=== PATIENT | male | born 1945 | race Caucasian/White ===

== ENCOUNTER → 2017-02-22 | Outpatient (CLI) | payer OTHER ==
[~2017-02-22] MED LIST: ATEN50TA PO; BISA-34 PO; GLUCTAB7 PO; LEVO200T PO; MRLP17 PO; MULT-506 PO; PRCSR30 PO; RXC5 PO; SENN-65 PO; TAMS0.4C38 PO
--- NOTE | 2017-02-26 08:46 | DIAGNOSTIC IMAGING REPORT ---
CT OF THE CHEST WITHOUT IV CONTRAST CLINICAL HISTORY: Pulmonary nodule COMPARISON STUDY: PET/CT scan dated 08/21/2016 CT DOSE: 541.64 mGycm TECHNIQUE: CT of the thorax was performed from the thoracic inlet to the lung bases. Images are reviewed in the axial, sagittal, and coronal planes. IV contrast was not administered for this examination. FINDINGS: Thyroid: Postsurgical changes involve the thyroid. Thoracic aorta: The thoracic aorta is normal in course and caliber, noting standard 3 vessel arch anatomy. Heart: There are coronary artery calcifications present. Lungs and pleural spaces: No pleural effusions are visualized. There is no focal pulmonary consolidation. There is a 12 mm solid left lower lobe pulmonary nodule. This nodule demonstrates no greater than 1 mm interval growth when compared to the abdominal pelvic CT scan performed in June 2016. There is a 4 mm groundglass right lower lobe pulmonary nodule similar in appearance to the prior PET/CT. Mediastinum: There is increasing mediastinal lymphadenopathy. Loretta: Mild hilar adenopathy is suspected but evaluation is limited due to the noncontrast nature the study Axilla: There is increasing bilateral axillary lymphadenopathy Upper abdomen: There is increasing upper abdominal lymphadenopathy Skeletal structures: There are no lytic or blastic osseous lesions. IMPRESSION: 1. Increasing mediastinal, axillary, supraclavicular, and upper abdominal lymphadenopathy. The findings are highly suspicious for lymphoma 2. 12 mm solid left lower lobe pulmonary nodule. This demonstrates no greater than 1 mm interval growth when compared with a prior June 2016 study Electronically signed by: Daniel Pineda M.D. 02/22/2017 11:24 AM Dictated Date/Time: 02/22/2017 11:15 AM
== END | disposition home or self-care (01) ==
LOC: C.CTS 10:26
PROVIDERS: ATTEND Internal Medicine Hematology & Oncology
DX: R91.1 Solitary pulmonary nodule (principal); R59.1 Generalized enlarged lymph nodes

== ENCOUNTER → 2017-09-10 | Outpatient (CLI) | payer OTHER ==
[~2017-09-10] MED LIST changes: +OPTIRAY 320 IV PRN
--- NOTE | 2017-09-10 14:34 | DIAGNOSTIC IMAGING REPORT ---
CT ABD/PELVIS IV AND ORAL CONT CLINICAL HISTORY: LEUKEMIA COMPARISON STUDY: 08/02/2016, chest CT scan dated 08/23/2017 TECHNIQUE: Following the IV administration of 93 mL of Optiray-320, CT scan of the abdomen and pelvis was performed from the lung bases to the proximal femurs. Images are reviewed in the axial, sagittal, and coronal planes. IV contrast was administered without complication. A dose lowering technique was utilized adhering to the principles of ALARA. CT DOSE: FINDINGS: Lower chest: There has been interval resolution of the presented identified bilateral pleural effusions. There is a 12 mm left lower lobe pulmonary nodule. This remains unchanged from the chest CT scan performed 08/23/2017 Liver: The contrast-enhanced liver is normal in size, contour, and attenuation. There is no intrahepatic biliary ductal dilatation. The hepatic veins and portal veins are patent. Gallbladder: Surgically absent Spleen: The spleen is enlarged measuring 13.8 cm. There are multiple splenic masses, the largest of which measures 4.9 cm. Neoplastic involvement is suspected. Pancreas: Soft tissue nodules at the level the pancreatic tail, likely represent extrinsic adenopathy. Adrenal glands: Unremarkable. Kidneys: There is been marked interval improvement in the previously identified bilateral hydronephrosis. There is slight stranding in the region the left renal pelvis Bowel: There are no transition zone to indicate bowel obstruction. There is no acute diverticulitis. There is no evidence of acute appendicitis. Peritoneum: There is no intraperitoneal free air or abdominal ascites. Vasculature: The abdominal aorta is normal in course and caliber. Adenopathy: There is extensive progressive abdominal and pelvic lymphadenopathy. Dot hepatis adenopathy measures 9.7 cm. Adenopathy at the level the right renal artery and right renal vein measures 12.9 cm in AP diameter and 11.5 cm transversely. There are multiple enlarged mesenteric lymph nodes. There is bilateral iliac chain lymphadenopathy. There is mild bilateral inguinal lymphadenopathy. Pelvic viscera: The bladder, and pelvic viscera are unremarkable. Skeletal structures: Postsurgical changes are present within the lumbar spine. IMPRESSION: 1. Stable 12 mm left lower lobe pulmonary nodule 2. Markedly progressive extensive abdominal and pelvic lymphadenopathy. 3. Splenomegaly and multiple splenic masses Electronically signed by: Daniel Pineda M.D. 09/10/2017 2:33 PM Dictated Date/Time: 09/10/2017 2:24 PM
--- NOTE | 2017-09-10 15:05 | DIAGNOSTIC IMAGING REPORT ---
(CHEST) THORAX WITH CLINICAL HISTORY: 71 years-old Male presenting with LEUKEMIA. TECHNIQUE: Multidetector CT imaging of the chest was performed after the administration of intravenous contrast. IV contrast: 93 mL of Optiray 320. A dose lowering technique was used consistent with the principles of ALARA (as low as reasonably achievable). COMPARISON: 08/23/2017. CT DOSE (mGy.cm): The estimated cumulative dose is 1295.17 mGycm. 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 Radiodensity projects over the right midlung. On soft tissue windows, postsurgical change of the thyroidectomy bed. Previously noted diffuse lymphadenopathy is again apparent involving the bilateral axillae, supraclavicular fossae, mediastinum, ester, right greater than left. Upper abdominal lymphadenopathy also noted. Few index nodes are measured for comparison. Left axillary lymph node measures 1.7 cm and the short axis (see series 4 image 92), previously 1.6 cm. Right retropectoral lymph node measures 1.7 cm in the short axis (series 4 image 62), previously 2.0 cm. Precarinal lymph node measures 1.3 cm in the short axis (series 4 image 96), previously 1.4 cm. Atherosclerosis of the aorta. Postsurgical changes of coronary artery bypass. Normal heart size. Coronary artery calcification. No pericardial or pleural effusion. Please see separately dictated CT of the abdomen and pelvis for intra-abdominal findings. On lung windows, left lower lobe solid pulmonary nodule measures 11 mm (series 4 image 206), previously 11 mm. Dependent changes likely atelectasis. Minimal groundglass opacity in the subpleural right lower lobe (series 4 image 160), unchanged from prior exam. On bone windows, degenerative changes of the spine. IMPRESSION: 1. 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 Overall no convincing evidence of progression of disease in the thorax. 2. Post surgical changes of CABG. 3. Solid 11 mm left lower lobe pulmonary nodule. This is unchanged since 02/22/2017. 4. Electronically signed by: Calderon Christianson M.D. 09/10/2017 3:04 PM Dictated Date/Time: 09/10/2017 2:53 PM
== END | disposition home or self-care (01) ==
LOC: C.CTS 13:22
PROVIDERS: ATTEND Internal Medicine Hematology & Oncology
DX: C91.10 Chronic lymphocytic leukemia of B-cell type not having achieved remission (principal); R91.1 Solitary pulmonary nodule; R59.0 Localized enlarged lymph nodes; R16.1 Splenomegaly, not elsewhere classified; D73.9 Disease of spleen, unspecified

== ENCOUNTER 2021-11-29 16:42 | Observation (INO) ==
[2021-11-29] MEDS ORDERED: NITROGLYCERIN 2% OINTMENT 30GM TUBE EXT STA (17:16)
--- NOTE | 2021-11-29 17:18 | Emergency Department Note ---
History of Present Illness General Chief complaint: Chest Pain Time Seen by Provider: 11/29/21 17:03 Source: patient Mode of arrival: EMS History of Present Illness Provider complaint: Chest pain Onset (ago): hour(s) Location: chest Radiation: non-radiation Pain Consistency: + constant Maximum Pain Intensity: 1 Quality: + other (Squeezing) Relieved By: + none Exacerbated By: + none Associated symptoms: + chest pain; no cough, no diaphoresis, no fever/chills, no nausea/vomiting or no shortness of breath This is a 76-year-old male with a history of quadruple bypass presenting with chest pain starting approximately 3:00 today. The patient states that it felt like a squeezing sensation in the lower chest. He rated it a 10 out of 10 in severity. He called 911 and took an antacid. He states years ago he had the same symptoms and saw his neighbor who is a doctor. The antacid worked for him years ago but today it did not seem to help. The ambulance did arrive. He did receive nitroglycerin as well as aspirin. He states the pain seemed to get better before he was given a nitro. He had no associated shortness of breath or diaphoresis. He denies any abdominal pain. He has had no fever, cough or cold symptoms, vomiting, diarrhea, black or bloody stools, urinary symptoms or leg swelling or pain. He does state that his right leg is naturally asymmetrically bigger than the left due to venous graft harvesting for his bypass surgery. He states he never had a heart attack. He had the bypass before he developed 1. He does state that he drove to and back from [place] about 2 weeks ago. He also drove his son to [place] and back today. He denies any history of PE or DVT. Home Medications Medication Instructions Recorded Confirmed Type levothyroxine 200 mcg tablet 200 mcg PO DAILYBB 07/30/18 05/28/21 History (Synthroid) metformin 850 mg tablet 850 mg PO BID 07/30/18 05/28/21 History hyuscwxtvmba-oekuaqsr-muypyg 1 tab PO QAM 07/30/18 05/28/21 History tablet (Multivitamin 50 Plus) simvastatin 40 mg tablet (Zocor) 40 mg PO HS 07/30/18 05/28/21 History tamsulosin 0.4 mg capsule (Flomax) 0.4 mg PO QAM 07/30/18 05/28/21 History ibrutinib 420 mg tablet (Imbruvica) 420 mg PO DAILY@1600 05/03/19 05/28/21 History insulin glargine 100 unit/mL (3 14 unit SUBCUT HS 05/03/19 05/28/21 History mL) subcutaneous pen (Basaglar KwikPen U-100 Insulin) insulin aspart U-100 100 unit/mL 0 unit SUBCUT USEASDIRECTD PRN 07/23/19 05/28/21 History subcutaneous solution (Novolog U-100 Insulin aspart) lisinopril 20 mg tablet (Prinivil) 40 mg PO BID 07/23/19 05/28/21 History atenolol 50 mg tablet (Tenormin) 50 mg PO QAM tab 07/31/19 05/28/21 History prazosin 2 mg capsule (Minipress) 4 mg PO BID 01/02/21 05/28/21 History cephalexin 250 mg capsule 250 mg PO UD 05/28/21 05/28/21 History Allergies Allergy/AdvReac Type Severity Reaction Status Date / Time clopidogrel AdvReac Severe SEVERE Verified 11/29/21 19:11 SUBCUTANEOUS BLEEDING BOTH ARMS glimepiride [From Amaryl] AdvReac Severe Increased Verified 11/29/21 19:11 liver enzymes Sulfa (Sulfonamide AdvReac Severe Increased Verified 11/29/21 19:11 Antibiotics) liver enzymes sulfamethoxazole AdvReac Severe INCREASED Verified 11/29/21 19:11 [From Bactrim] LIVER ENZYMES trimethoprim [From Bactrim] AdvReac Severe INCREASED Verified 11/29/21 19:11 LIVER ENZYMES Opioids - Morphine Analogues AdvReac Intermediate severe Verified 11/29/21 19:11 constipation Past Med/Surg History Medical History BPH (benign prostatic hyperplasia) Callus Cancer SKIN CANCER REMOVAL Diabetes mellitus, type 2 Hearing deficit Hyperlipidemia Hypertension Hypothyroidism Kidney stones Leukemia CLL (CHEMO) Osteoarthritis Pulmonary nodule BEING MONITORED Type 2 diabetes mellitus with diabetic neuropathy Ulcer of right heel and midfoot Surgical History Fusion of spine LUMBAR H/O four vessel coronary artery bypass graft History of cardiac cath CHEST PAIN>13 YEARS AGO History of cholecystectomy History of cholecystectomy History of colonoscopy History of coronary artery bypass graft 4 VESSELS (13 YEARS AGO) History of cystoscopy KIDNEY STONE REMOVAL History of thyroidectomy, total BENIGN (MULTIPLE RADIATION TREATMENT FOR ACNE AT AGE 14) History of tonsillectomy History of tooth extraction Previous back surgery Family History Grandfather Family history of diabetes mellitus Social History Smoking Status: Former smoker Tobacco Type: Cigarettes Cigarettes Per Day: QUIT 1984; Second Hand Exposure: No; Hx Alcohol Use: Yes Alcohol type: beer and hard liquor Hx Substance Use: No Preferred Language: Gambian Communication Ability: Effective Visual Impairment: Limited Hearing Ability: Normal Haircutter Required: No Beliefs That Will Affect Care: None marital status: Current Living Situation: Spouse current occupational status: retired Feels Safe at Home: Yes Assistive Devices: Glasses Review of Systems See HPI for pertinent positives & negatives. and A total of 10 systems reviewed and were otherwise negative Physical Exam Vital Signs Vital Signs - 24 hr 11/29/21 16:33 11/29/21 17:01 Temperature 36.5 C Temperature Source Oral Pulse Rate 82 82 Pulse Rhythm Regular Regular Pulse Strength Normal Respiratory Rate 22 22 Respiratory Effort / Characteristics Non-Labored Spontaneous Respiratory Depth Normal Respiratory Pattern Regular Blood Pressure 123/65 Blood Pressure Mean 84 Blood Pressure Position Sitting Pulse Oximetry 93 93 Oxygen Delivery Method Room Air Room Air Sepsis Recent Fever Within 48 Hours No Sepsis New/Unexplained Change in Mental Status No Sepsis Action Taken by Nursing No Action Required Constitutional: Vital signs reviewed. Eyes: Pupils are equal round reactive to light. Conjunctiva are noninjected. ENT: Pharynx is clear without erythema or exudate. Mucous membranes are moist. Neck supple without meningeal signs. Respiratory: Clear to auscultation bilaterally. Breath sounds are equal bilaterally. Cardiovascular: Regular rate and rhythm. No rubs or gallops. GI: Soft, nondistended and nontender. Bowel sounds are present. Musculoskeletal: No peripheral edema. No lower extremity tenderness. Integumentary: No cyanosis. or jaundice. Neurological: The patient is awake and alert. No focal deficits. Psychiatric: Normal affect. Not anxious appearing. Course Administered Medications Discontinued Medications Nitroglycerin (Nitroglycerin 2% Ointment 30gm Tube) 0.5 inch EXT NOW STA Stop: 11/29/21 17:17 Last Admin: 11/29/21 17:46 Dose: 0.5 inch Documented by: [id number] Medical Decision Making Differential Diagnosis Unstable angina, [place], esophagitis, GERD, anxiety, PE Medical Records Attestation: I reviewed the patient's medical records. I did perform a limited focused review of portions of the patient's old chart on the electronic medical record. The patient has had no recent pertinent visits to this hospital. Home Medications Current Medication List: was personally reviewed by me Laboratory Data Attestation: I reviewed the patient's lab results. Result diagrams: 11/29/21 16:53 11/29/21 16:53 Lab Results 11/29/21 11/29/21 Range/Units 16:53 16:53 WBC 11.00 H (4.8-10.8) K/uL RBC 4.30 L (4.7-6.1) M/uL Hgb 14.8 (14.0-18.0) g/dL Hct 41.9 L (42-52) % MCV 97.4 (80-100) fL MCH 34.4 H (25-34) pg MCHC 35.3 (32-36) g/dL RDW Std Deviation 48.4 H (36.4-46.3) fL RDW Coeff of Irina 13.7 (11.5-14.5) % Plt Count 85 L (130-400) K/uL MPV 12.2 H (7.4-10.4) fL Immature Gran % (Auto) 0.1 % Neut % (Auto) 85.4 % Lymph % (Auto) 11.3 % Wilkes % (Auto) 2.2 % Eos % (Auto) 0.7 % Baso % (Auto) 0.3 % Neut # (Auto) 9.40 H (1.4-6.5) K/uL Lymph # (Auto) 1.24 (1.2-3.4) K/uL Wilkes # (Auto) 0.24 (0.11-0.59) K/uL Eos # (Auto) 0.08 (0-0.5) K/uL Baso # (Auto) 0.03 (0-0.2) K/uL Immature Gran # (Auto) 0.01 (0.00-0.02) K/uL Platelet Estimate Decreased L (Normal) Sodium 140 (136-145) mmol/L Potassium 4.5 (3.5-5.1) mmol/L Chloride 108 H (98-107) mmol/L Carbon Dioxide 23 (21-32) mmol/L Anion Gap 9 (3-11) BUN 28 H (6-23) mg/dl Creatinine 1.21 (0.6-1.4) mg/dl Est Cr Clr Drug Dosing 57.0 ml/min Est GFR ( Amer) 67.9 ml/min Est GFR (Non-Af Amer) 58.6 ml/min BUN/Creatinine Ratio 23.1 H (10-20) Glucose 161 H (70-99(Fasting)) mg/dl Calcium 8.2 L (8.5-10.1) mg/dl Total Bilirubin 2.2 H (0.2-1.0) mg/dl AST 110 H (13-39) U/L ALT 48 (7-52) U/L Alkaline Phosphatase 67 (34-104) U/L Troponin I < 0.03 (0-0.04) ng/ml Total Protein 6.4 (6.0-8.3) gm/dl Albumin 4.1 (3.4-5.0) gm/dl Globulin 2.3 L (2.5-4.0) gm/dl Albumin/Globulin Ratio 1.8 (0.9-2) Lipase 53 (11-82) U/L Imaging Data Radiologist's Impression: Chest X-Ray 11/29/21 17:01 XR chest 1V portable CLINICAL HISTORY: Chest Pain. COMPARISON STUDY: 09/26/2018 TECHNIQUE: 1 view of the chest FINDINGS: Single frontal view of the chest demonstrates the cardiomediastinal silhouette to be within normal limits. The patient is status post previous cardiothoracic surgery. The lungs are clear of alveolar opacities. There is no evidence for pleural effusion. There is no evidence for vascular congestion. There is no acute osseous pathology. IMPRESSION: 1. No acute cardiopulmonary disease. ACT 112: Negative or not required by law. Electronically signed by: Blaine Magaña M.D. 11/29/2021 5:20 PM Liver Ultrasound 11/29/21 17:43 US liver LIMITED ABDOMEN CLINICAL HISTORY: elevated bili eval for biliary obstruction. COMPARISON: Old CT of the abdomen and pelvis from 04/09/2020 TECHNIQUE: Multiple grayscale and color images of the right upper quadrant of the abdomen. FINDINGS: Pancreas: The pancreas is within normal limits with no focal mass or peripancreatic fluid collection identified. Liver: The liver is homogeneous in echogenicity There is no evidence for a focal mass. There is no intrahepatic biliary duct dilatation. Gallbladder: The patient is status post previous cholecystectomy. Common Bile Duct: (CBD): It is normal in size measuring 6 mm. Inferior Vena Cava (IVC): The imaged IVC is patent. Right kidney: There is no evidence for hydronephrosis, calculus or gross renal mass. The kidney is normal in size. It measures 12.8 cm in greatest length. IMPRESSION: 1. Status post cholecystectomy with normal common bile duct. No intrahepatic b iliary duct dilatation. ACT 112: Negative or not required by law. Electronically signed by: Blaine Magaña M.D. 11/29/2021 6:54 PM ECG Data Attestation: I personally reviewed and interpreted this ECG as follows: Indication: + chest pain Rate (beats per minute): 82 Rhythm: + normal sinus ECG Warren: + Normal ECG ST segments: + Nonspecific ST abnormalities ECG Findings: no PVCs Comparison ECG Date: from (December 27, 2017) Change: no significant change (Difficult to assess is a copy on the electronic record is very poor) MDM Narrative I did evaluate the patient as noted above. He has a history of quadruple bypass and is presenting with chest pain which she describes as a squeezing and pressure in the middle of his chest. It is now resolved. He did receive nitroglycerin and aspirin prior to arrival. I did place an order for continuous cardiac monitoring. The monitor showed normal sinus rhythm at a rate of 80 bpm. I did order and personally review the patient's 12-lead EKG as described above. He has no acute ischemic changes. I did order and personally reviewed the images of the patient's chest x-ray as described above. Chest x-ray is unremarkable without signs of pneumonia. I did order and review the patient's blood work as noted in the electronic medical record. CBC demonstrates a white count of 11. Hemoglobin is 14.8 and platelet count is 85. He does have a history of chronic thrombocytopenia. Electrolytes are unremarkable other than a chloride of 108 and calcium of 8.2 LFTs show a bilirubin of 2.2 and an AST of 110. Prior bilirubins have been elevated up to 1.4 but never as high as 2.2. He has no abdominal tenderness but given the elevated bilirubin I did order an ultrasound of the right upper quadrant. I did review the images myself as well as the radiology report as described above. There is no evidence of biliary obstruction. Common bile duct is normal caliber and there is no evidence of intrahepatic biliary ductal dilatation. I did reassess the patient. He states his chest pain is now completely resolved. I did discuss the test results with the patient. I did recommend hospitalization for further evaluation and repeat cardiac biomarkers. I did order a screening COVID test. I did discuss the case with the hospitalist and bilingual case manager. Impression & Plan Acute chest pain, Thrombocytopenia, Abnormal LFTs Discharge Plan Visit Data Chief Complaint: Chest Pain ED Provider: Rome Gilman Discharge Problem: Acute chest pain, Thrombocytopenia, Abnormal LFTs Patient Disposition: Being Evaluated by Hospitalist Forms Stand Alone Forms: My [facility] Prescriptions Prescriptions: No Action metformin 850 mg Tablet 850 mg PO BID RF: 0 simvastatin [Zocor] 40 mg Tablet 40 mg PO HS RF: 0 tamsulosin [Flomax] 0.4 mg Capsule 0.4 mg PO QAM RF: 0 levothyroxine [Synthroid] 200 mcg Tablet 200 mcg PO DAILYBB RF: 0 Multivitamin 50 Plus Tablet 1 tab PO QAM RF: 0 Basaglar KwikPen U-100 Insulin 100 unit/mL (3 mL) insulin pen 14 unit subcut HS RF: 0 Imbruvica 420 mg tablet 420 mg PO DAILY@1600 RF: 0 lisinopril [Prinivil] 20 mg tablet 40 mg PO BID RF: 0 insulin aspart U-100 [Novolog U-100 Insulin aspart] 100 unit/mL Solution 0 unit SUBCUT USEASDIRECTD PRN (Reason: Unknown) RF: 0 atenolol [Tenormin] 50 mg tablet 50 mg PO QAM RF: 0 prazosin [Minipress] 2 mg capsule 4 mg PO BID RF: 0 cephalexin 250 mg capsule 250 mg PO UD RF: 0 Referrals Referrals: Yuki Elliott MD [Primary Care Provider] -
--- NOTE | 2021-11-29 17:21 | XRay Report ---
XR chest 1V portable CLINICAL HISTORY: Chest Pain. COMPARISON STUDY: 09/26/2018 TECHNIQUE: 1 view of the chest FINDINGS: Single frontal view of the chest demonstrates the cardiomediastinal silhouette to be within normal li mits. The patient is status post previous cardiothoracic surgery. The lungs are clear of alveolar opa cities. There is no evidence for pleural effusion. There is no evidence for vascular congestion. Ther e is no acute osseous pathology. IMPRESSION: 1. No acute cardiopulmonary disease. ACT 112: Negative or not required by law. Electronically signed by: Blaine Magaña M.D. 11/29/2021 5:20 PM
[2021-11-29 17:36] LABS: Troponin I < 0.03 ng/ml (0-0.04)
[2021-11-29 17:37] LABS: Alanine Aminotransferase 48 U/L (7-52); Albumin Globulin Ratio 1.8 (0.9-2); Albumin Level 4.1 gm/dl (3.4-5.0); Alkaline Phosphatase 67 U/L (34-104); Anion Gap 9 (3-11); Aspartate Aminotransferase 110 U/L (13-39); BUN Creatinine Ratio 23.1 (10-20); Bilirubin,Total 2.2 mg/dl (0.2-1.0); Blood Urea Nitrogen 28 mg/dl (6-23); Calcium 8.2 mg/dl (8.5-10.1); Carbon Dioxide 23 mmol/L (21-32); Chloride 108 mmol/L (98-107); Est GFR (African American) 67.9 ml/min; Est GFR (Non-African American) 58.6 ml/min; Globulin 2.3 gm/dl (2.5-4.0); Glucose 161 mg/dl (70-99(Fasting)); Lipase 53 U/L (11-82); Potassium 4.5 mmol/L (3.5-5.1); Sodium 140 mmol/L (136-145); Total Protein 6.4 gm/dl (6.0-8.3)
[2021-11-29 17:47] LABS: Basophils # (auto) 0.03 K/uL (0-0.2); Basophils % (auto) 0.3 %; Eosinophils # (auto) 0.08 K/uL (0-0.5); Eosinophils % (auto) 0.7 %; Hematocrit (blood only) 41.9 % (42-52); Hemoglobin 14.8 g/dL (14.0-18.0); Immature Granulocytes # (auto) 0.01 K/uL (0.00-0.02); Immature Granulocytes % (auto) 0.1 %; Lymphocytes # (auto) 1.24 K/uL (1.2-3.4); Lymphocytes % (auto) 11.3 %; Mean Corpuscular Hemoglobin 34.4 pg (25-34); Mean Corpuscular Hgb Conc 35.3 g/dL (32-36); Mean Corpuscular Volume 97.4 fL (80-100); Mean Platelet Volume 12.2 fL (7.4-10.4); Monocytes # (auto) 0.24 K/uL (0.11-0.59); Monocytes % (auto) 2.2 %; Neutrophils % (auto) 85.4 %; Platelet Count 85 K/uL (130-400); Platelet Estimate Decreased (Normal); RDW Coefficient of Variation 13.7 % (11.5-14.5); RDW Standard Deviation 48.4 fL (36.4-46.3)
--- NOTE | 2021-11-29 18:55 | Ultrasound Report ---
US liver LIMITED ABDOMEN CLINICAL HISTORY: elevated bili eval for biliary obstruction. COMPARISON: Old CT of the abdomen and pelvis from 04/09/2020 TECHNIQUE: Multiple grayscale and color images of the right upper quadrant of the abdomen. FINDINGS: Pancreas: The pancreas is within normal limits with no focal mass or peripancreatic fluid collection identified. Liver: The liver is homogeneous in echogenicity There is no evidence for a focal mass. There is no in trahepatic biliary duct dilatation. Gallbladder: The patient is status post previous cholecystectomy. Common Bile Duct: (CBD): It is normal in size measuring 6 mm. Inferior Vena Cava (IVC): The imaged IVC is patent. Right kidney: There is no evidence for hydronephrosis, calculus or gross renal mass. The kidney is n ormal in size. It measures 12.8 cm in greatest length. IMPRESSION: 1. Status post cholecystectomy with normal common bile duct. No intrahepatic biliary duct dilatation. ACT 112: Negative or not required by law. Electronically signed by: Blaine Magaña M.D. 11/29/2021 6:54 PM
--- NOTE | 2021-11-29 19:41 | History & Physical Report ---
Date of Service November 29, 2021 Assessment & Plan (1) Acute chest pain: Plan: Self resolving without dynamic ECG changes or biomarkers DDX: Cardiac vs. noncardiac chest pain vs. GERD - Trend Troponin I - is early in his presentation currently - Consider further risk stratification in AM - 4 V CABG ~ 17 years ago - No hypoxia or tachycardia - This has occurred with him over past few years- has not had GI eval - Continue Statin, BB - Not on ASA secondary to low platelets and history of bruising on Plavix (2) Abnormal LFTs: Plan: AST 110 with mild elevation in T. bili - RUQUS negative - Trend (3) Dyslipidemia: Plan: Continue simvastatin 20mg (4) Diabetes: Plan: Well controlled - Continue basal bolus insulin - CF 20 Car ration 1:12 (5) BPH (benign prostatic hyperplasia): Plan: [place] Flomax and Prazaosin (6) CLL (chronic lymphocytic leukemia): Plan: Patient on Imbruvica Continue- may need to bring from home - Follow his labs - Mild elevation in his WBC count to 11- likely stress response from earlier- follow WBC and NLR (7) Hypertension: Plan: Controlled as above History of Present Illness Primary Care Provider: Yuki Elliott MD 76 YOM with past medical history of: 4V CABG, CLL, insomnia, HLD, HTN, DM II, BPH, Cholecystectomy. Patient comes to the emergency room today for acute onset of substernal chest pain that occurred around 1500 today. Patient was sitting in his chair following eating a sandwich. He originally felt that is was gastric in nature, as this is the same pain he felt when he got his gallbladder out, he took antacids (which normally help), but the pain continued to get worse. The pain did not radiate, was not associated with dyspnea, diaphoresis, or vomiting. He did report some nausea, but feels this was secondary to the pain. He called EMS and by the time EMS got him the pain was relieved. He did receive an ASA and NTG enroute, and remains chest pain free at this time. Will remove his NTP that was placed in EMD as want to know if symptoms return. His ECG is negative for dyanmic changes and his Troponin I was negative. Patient endorses that he did drive to [place] today and did some shopping and returned home without any symptoms and was without stress. He continues to do tasks around the house, castaeñda, and go up and down stairs without any dyspnea or chest pain. He endorses some lower leg swelling in his right leg that is chronic following his bypass surgery and wears compression hose normally. Patient will be brought in for trending of troponin and symptoms with further r isk stratification in the morning. Patient COVID test is: NEGATIVE upon admission Allergies Allergy/AdvReac Type Severity Reaction Status Date / Time clopidogrel AdvReac Severe SEVERE Verified 11/29/21 19:11 SUBCUTANEOUS BLEEDING BOTH ARMS glimepiride [From Amaryl] AdvReac Severe Increased Verified 11/29/21 19:11 liver enzymes Sulfa (Sulfonamide AdvReac Severe Increased Verified 11/29/21 19:11 Antibiotics) liver enzymes sulfamethoxazole AdvReac Severe INCREASED Verified 11/29/21 19:11 [From Bactrim] LIVER ENZYMES trimethoprim [From Bactrim] AdvReac Severe INCREASED Verified 11/29/21 19:11 LIVER ENZYMES Opioids - Morphine Analogues AdvReac Intermediate severe Verified 11/29/21 19:11 constipation Home Medications Medication Instructions Recorded Confirmed Type levothyroxine 200 mcg tablet 200 mcg PO DAILYBB 07/30/18 11/29/21 History (Synthroid) metformin 850 mg tablet 850 mg PO BID 07/30/18 11/29/21 History vnrddkcagerl-dwaktukc-otupyg 1 tab PO QAM 07/30/18 11/29/21 History tablet (Multivitamin 50 Plus) simvastatin 40 mg tablet (Zocor) 40 mg PO HS 07/30/18 11/29/21 History tamsulosin 0.4 mg capsule (Flomax) 0.4 mg PO QAM 07/30/18 11/29/21 History ibrutinib 420 mg tablet (Imbruvica) 420 mg PO DAILY@1600 05/03/19 11/29/21 History insulin glargine 100 unit/mL (3 14 unit SUBCUT HS 05/03/19 11/29/21 History mL) subcutaneous pen (Basaglar KwikPen U-100 Insulin) insulin aspart U-100 100 unit/mL 0 unit SUBCUT USEASDIRECTD PRN 07/23/19 11/29/21 History subcutaneous solution (Novolog U-100 Insulin aspart) atenolol 50 mg tablet (Tenormin) 50 mg PO QAM tab 07/31/19 11/29/21 History prazosin 2 mg capsule (Minipress) 4 mg PO BID 01/02/21 11/29/21 History cephalexin 250 mg capsule 250 mg PO DIRECTED PRN 05/28/21 11/29/21 History eszopiclone 2 mg tablet (Lunesta) 2 mg PO HS PRN 11/29/21 11/29/21 History lisinopril 20 mg tablet 20 mg PO BID 11/29/21 11/29/21 History Past Med/Surg History Medical History BPH (benign prostatic hyperplasia) Callus Cancer SKIN CANCER REMOVAL Diabetes mellitus, type 2 Hearing deficit Hyperlipidemia Hypertension Hypothyroidism Kidney stones Leukemia CLL (CHEMO) Osteoarthritis Pulmonary nodule BEING MONITORED Type 2 diabetes mellitus with diabetic neuropathy Ulcer of right heel and midfoot Surgical History Fusion of spine LUMBAR H/O four vessel coronary artery bypass graft History of cardiac cath CHEST PAIN>13 YEARS AGO History of cholecystectomy History of cholecystectomy History of colonoscopy History of coronary artery bypass graft 4 VESSELS (13 YEARS AGO) History of cystoscopy KIDNEY STONE REMOVAL History of thyroidectomy, total BENIGN (MULTIPLE RADIATION TREATMENT FOR ACNE AT AGE 14) History of tonsillectomy History of tooth extraction Previous back surgery Family History Grandfather Family history of diabetes mellitus Social History Smoking Status: Former smoker Tobacco Type: Cigarettes Cigarettes Per Day: QUIT 1984; Second Hand Exposure: No; Hx Alcohol Use: Yes Alcohol type: beer and hard liquor Hx Substance Use: No Preferred Language: Bulgarian Communication Ability: Effective Visual Impairment: Limited Hearing Ability: Normal Brim Setter Required: No Beliefs That Will Affect Care: None marital status: Current Living Situation: Spouse current occupational status: retired Feels Safe at Home: Yes Assistive Devices: Glasses Review of Systems Review of Systems: REVIEW OF SYSTEMS: Constitutional: No fever, sweats or chills Eyes: No diplopia, no worsening or blurred vision ENT: normal hearing, no trouble swallowing Respiratory: No cough, sputum, dyspnea at rest or on exertion Cardiovascular: (+) substernal chest pain (resolved), No palpitations Abdomen: No pain, nausea, vomiting, diarrhea or constipation Musculoskeletal: No joint pain, calf pain, swelling Neurologic: No weakness, numbness/tingling, or balance problems Psychiatric: No anxiety or depression Skin: No rash or itch Physical Exam Physical Exam: PHYSICAL EXAM: General: awake, alert, no apparent distress Head: Normocephalic, atraumatic ENT: PERRL, EOMI, no pharyngeal exudate, mucous membranes moist Neuro: AAO x 3, speech clear and appropriate, strength intact bilaterally 5/5, sensation intact and equal all extremities and dermatomes, no pronator drift Chest: equal rise and fall of the chest, no accessory muscle use, no heaves or thrills, Clear to auscultation, on room air, Cardiac: Regular rate and rhythm, telemetry reviewed, skin warm dry, cap refill <3 seconds, peripheral pulses +2 no JVD, no murmur, no edema GI: NABS x 4 quadrants, soft, nontender to palpation, no rebound, guarding or tenderness : Spontaneously voiding, no pain, no CVA tenderness, Extremities: Normal inspection, no peripheral edema or erythema, calfs nontender to palpation Psych: Normal mood and affect Skin: no rash or erythema Results & Data Results & Data ([facility]) Vital Signs (Past 12 Hours) Vital Signs Temp Pulse Resp BP Pulse Ox 11/29/21 17:01 82 22 93 11/29/21 16:33 36.5 C 82 22 123/65 93 Laboratory Results Abnormal lab results 11/29/21 11/29/21 Range/Units 16:53 16:53 WBC 11.00 H (4.8-10.8) K/uL RBC 4.30 L (4.7-6.1) M/uL Hct 41.9 L (42-52) % MCH 34.4 H (25-34) pg RDW Std Deviation 48.4 H (36.4-46.3) fL Plt Count 85 L (130-400) K/uL MPV 12.2 H (7.4-10.4) fL Neut # (Auto) 9.40 H (1.4-6.5) K/uL Platelet Estimate Decreased L (Normal) Chloride 108 H (98-107) mmol/L BUN 28 H (6-23) mg/dl BUN/Creatinine Ratio 23.1 H (10-20) Glucose 161 H (70-99(Fasting)) mg/dl Calcium 8.2 L (8.5-10.1) mg/dl Total Bilirubin 2.2 H (0.2-1.0) mg/dl AST 110 H (13-39) U/L Globulin 2.3 L (2.5-4.0) gm/dl Diagnostic Findings Chest X-Ray 11/29/21 17:01 XR chest 1V portable CLINICAL HISTORY: Chest Pain. COMPARISON STUDY: 09/26/2018 TECHNIQUE: 1 view of the chest FINDINGS: Single frontal view of the chest demonstrates the cardiomediastinal silhouette to be within normal limits. The patient is status post previous cardiothoracic surgery. The lungs are clear of alveolar opacities. There is no evidence for pleural effusion. There is no evidence for vascular congestion. There is no acute osseous pathology. IMPRESSION: 1. No acute cardiopulmonary disease. ACT 112: Negative or not required by law. Electronically signed by: Blaine Magaña M.D. 11/29/2021 5:20 PM Liver Ultrasound 11/29/21 17:43 US liver LIMITED ABDOMEN CLINICAL HISTORY: elevated bili eval for biliary obstruction. COMPARISON: Old CT of the abdomen and pelvis from 04/09/2020 TECHNIQUE: Multiple grayscale and color images of the right upper quadrant of the abdomen. FINDINGS: Pancreas: The pancreas is within normal limits with no focal mass or peripancreatic fluid collection identified. Liver: The liver is homogeneous in echogenicity There is no evidence for a focal mass. There is no intrahepatic biliary duct dilatation. Gallbladder: The patient is status post previous cholecystectomy. Common Bile Duct: (CBD): It is normal in size measuring 6 mm. Inferior Vena Cava (IVC): The imaged IVC is patent. Right kidney: There is no evidence for hydronephrosis, calculus or gross renal mass. The kidney is normal in size. It measures 12.8 cm in greatest length. IMPRESSION: 1. Status post cholecystectomy with normal common bile duct. No intrahepatic biliary duct dilatation. ACT 112: Negative or not required by law. Electronically signed by: Blaine Magaña M.D. 11/29/2021 6:54 PM Medications Administered Discontinued Medications Nitroglycerin (Nitroglycerin 2% Ointment 30gm Tube) 0.5 inch EXT NOW STA Stop: 11/29/21 17:17 Last Admin: 11/29/21 17:46 Dose: 0.5 inch Documented by: [id number] Home Medications levothyroxine 200 mcg tablet (Synthroid) 200 mcg PO DAILYBB 07/30/18 [History Confirmed 11/29/21] metformin 850 mg tablet 850 mg PO BID 07/30/18 [History Confirmed 11/29/21] nrxjmsytlgws-tbrouegr-eaphvw tablet (Multivitamin 50 Plus) 1 tab PO QAM 07/30/18 [History Confirmed 11/29/21] simvastatin 40 mg tablet (Zocor) 40 mg PO HS 07/30/18 [History Confirmed 11/29/21] tamsulosin 0.4 mg capsule (Flomax) 0.4 mg PO QAM 07/30/18 [History Confirmed 11/29/21] ibrutinib 420 mg tablet (Imbruvica) 420 mg PO DAILY@1600 05/03/19 [History Confirmed 11/29/21] insulin glargine 100 unit/mL (3 mL) subcutaneous pen (Basaglar KwikPen U-100 Insulin) 14 unit SUBCUT HS 05/03/19 [History Confirmed 11/29/21] insulin aspart U-100 100 unit/mL subcutaneous solution (Novolog U-100 Insulin aspart) 0 unit SUBCUT USEASDIRECTD PRN 07/23/19 [History Confirmed 11/29/21] atenolol 50 mg tablet (Tenormin) 50 mg PO QAM tab 07/31/19 [History Confirmed 11/29/21] prazosin 2 mg capsule (Minipress) 4 mg PO BID 01/02/21 [History Confirmed ] cephalexin 250 mg capsule 250 mg PO DIRECTED PRN 05/28/21 [History Confirmed 11/29/21] eszopiclone 2 mg tablet (Lunesta) 2 mg PO HS PRN 11/29/21 [History Confirmed 11/29/21] lisinopril 20 mg tablet 20 mg PO BID 11/29/21 [History Confirmed 11/29/21] ECG Additional Comments: Normal sinus rhythm Cannot rule out Anterior infarct , age undetermined Abnormal ECG When compared with ECG of 27-JUL-2016 23:23, No significant change was found Code Status & VTE Plan Code Status CODE: DNR/DNI VTE: SCDS, Lovenox sub q Supervising Physician Co-Signing Physician Notes Patient was seen and examined independently I discussed the case with Raul AGARWAL I reviewed pertinent past medical social family history and also the plan of care and agree with the plan of care. Generally fit and healthy 76-year-old male who had chest pain at rest. He has had similar discomfort before which he was describing to acid reflux. He is an active person and he has not had any chest pain with any of his recent activities nor did he have any associated symptoms with this chest pain that occurred at rest. However he does have a cardiac history and risk factors including diabetes his initial ER evaluation is unremarkable we will keep him for observation for serial troponins and telemetry monitoring. Patient typically follows with Dr. Harley through [facility] cardiology and will likely have them weigh in on whether pursuing stress testing (typically done in the office with his group) versus conservative medical management. In the end he may benefit from a gastrointestinal evaluation Physical semination is denied normal cardiac rate no reproducible chest pain clear lungs no extremity edema he does have some petechial bruising from his chronic CLL Any exceptions will be noted below PG Care Time/CCT Total # of Minutes Spent Total Time Spent with Patient: Total time spent is greater than 50% in coordination of care (as documented) at patient's floor/unit and/or counseling patient: Coding Level of Care Code INT OBSERVATION CARE 70M LVL 3 Diagnoses Acute chest pain R07.9 Abnormal LFTs R79.89 Dyslipidemia E78.5 Diabetes E11.9 BPH (benign prostatic hyperplasia) N40.0 CLL (chronic lymphocytic leukemia) C91.90 Hypertension I10
[2021-11-29] MEDS ORDERED: ACETAMINOPHEN 325 MG TAB PO PRN (22:20)
[2021-11-29] MEDS ORDERED: GLUCAGON FOR INJ 1 MG VIAL SQ PRN (22:20)
[2021-11-29] MEDS ORDERED: GLUCOSE 40% GEL 15 GM TUBE PO PRN (22:20)
[2021-11-29] MEDS ORDERED: DEXTROSE 50% 50 ML SYRINGE IV PRN (22:20)
[2021-11-29] MEDS ORDERED: GLUCOSE 10 TABS/TUBE PO PRN (22:20)
[2021-11-29] MEDS ORDERED: CARBOHYDRATES FOR HYPOGLYCEMIA PO PRN (22:20)
[2021-11-29] MEDS ORDERED: ENOXAPARIN INJ 40 MG/0.4 ML SYR SQ SCH (22:20)
[2021-11-29] MEDS ORDERED: ESZOPICLONE 1 MG TAB PO PRN (22:54)
[2021-11-29] MEDS ORDERED: CALCIUM CARBONATE 500 MG CHEWABLE TAB PO PRN (23:34)
[2021-11-29] MEDS: lisinopril 20 MG TAB PO SCH (23:55)
[2021-11-30] MEDS: INSULIN GLARGINE SOLOSTAR 100 UNITS/ML 3 ML PEN SQ SCH ×2 (00:03→20:26)
[2021-11-30] MEDS: INSULIN ASPART PER UNIT SC SCH ×5 (00:07→20:25)
[2021-11-30] MEDS: LEVOTHYROXINE SODIUM 200 MCG TABLET PO SCH (06:32)
--- NOTE | 2021-11-30 06:32 | Hospitalist Progress Note ---
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 Chest Pain Transient substernal chest pain that occurred approx. 30 minutes after eating on 11/29. No exertional symptoms. Work-up as follows: History of CAD status post CABG x4 noted Reports similar episodes in the past relieved with antacids over last two years -- usually associated after eating. No regular NSAIDs/EtOH. Troponin negative x 3 Evidence of transaminitis and indirect hyperbilirubinemia (see below) ECG without any evidence of repolarization or conduction abnormalities, no evidence of pathologic Q waves Chest x-ray negative for acute processes Exercise stress echo revealing: Technically nondiagnostic due to failure to achieve target HR (on BB); however, no ECG/TTE e/o ischemia, symptoms, ectopy, dysrhythmias Based on the otherwise negative cardiac work-up above and the close prandial relationship this has had (both this time and in the past), suspect that etiology of this is likely gastroesophageal or hepatobiliary in nature. --> May represent underlying Sphincter of Yogesh dysfunction vs. passed gallstone in setting of bumped LFTs and transient resolution. Also considered: GERD, PUD, esophageal spasms. Will initiate patient on pantoprazole 40 mg daily empirically Can consider further testing for H. pylori if indicated as an outpatient (2) Abnormal LFTs: Plan: On arrival, patient noted to have mild transaminitis and direct hyperbilirubinemia -- which progressed during DOA#1 (AST 315 / ALT 317 / TBili 2.0 / DBili 0.4) Right upper quadrant ultrasound negative for acute/chronic pathology, including biliary distention Unclear etiology. ALT was normal yesterday, indicating that change is likely acute. Possible this all may have represented a transiently blocked then passed stone resulting in transient liver stress, or Sphincter of Yogesh dysfunction. No new RX other than Nitro given en route to ED. No infectious symptoms. 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 Will order MRCP for further clarification Consider GI consultation pending results of MRCP / need for ERCP (3) Dyslipidemia: Plan: Continue simvastatin 40 In June 2021, [facility] records reveal LDL under 70 Lipids checked here are at-goal: Chol 101 / LDL 49 / HDL 27 / TG 124 Consider intensifying statin to atorvastatin/rosuvastatin as outpatient given known h/o ASCVD (4) Diabetes: Plan: Continue basal/bolus insulin with AC at bedtime glucose checks Last A1c in June 2021 5.5% Repeat A1c checked here at 5.8% (5) BPH (benign prostatic hyperplasia): Plan: Continue Flomax and prazosin (6) CLL (chronic lymphocytic leukemia): Plan: History noted. No significant findings on labs today Continue Imbruvica; may need to bring from home (7) Hypertension: Plan: Well controlled. Continue lisinopril, atenolol Plan: PPX: Lovenox Dispo: Will transition to MS Diet: NPO for stress test, then cardiac diet Code: DNR/DNI Admission and Anticipated Discharge Date Admission Date: November 29, 2021 Supervising Physician Co-Signing Physician Notes Resident Physician Supervision Note: I independently interviewed and examined the patient and verified the almanzar history and physical, reviewed labs and image studies and agree with resident Dr. Henriquez findings and care plan. Subjective Patient seen at the bedside this morning. Said he rested comfortably last night. No recurrence of the chest pain. Denies any shortness of breath. On review of his history, the following details were clarified: He describes that 3 times over the last 4 years, he has had this substernal, squeezing-like pain that in 2 of the 3 instances, it has occurred after eating. Yesterday's event occurred approximately 30 minutes after he had eaten a sandwich. He says he actually woke up this morning with a sour taste in his mouth, which is atypical for him. He said that a few years ago, he woke up once at night from thisbut is unable to recall any details regarding food intake that day. He exercises frequently, including regular walking and doing push-ups, without any chest pain or shortness of breath. He denies any orthopnea or PND. Denies any recent fevers, chills, night sweats. Review of Systems Review of Systems: as per HPI Physical Exam Physical Exam: General: Healthy appearing 76-year-old male no acute distress. HEENT: No JVD. Cardiac: Normal rate and regular rhythm; S1 and S2 present with no murmurs, rubs, or gallops. Pulmonary: Good respiratory effort with symmetric expansion of the chest. No use of accessory muscles. Lungs were clear to auscultation bilaterally with no crackles or wheezes. Abdominal: Normoactive bowel sounds. Abdomen was soft, nondistended, and non- tender to palpation, including the epigastrum. Extremities: Upper and lower extremities are warm and well perfused. Results & Data Results & Data ([facility]) Vital Signs (Past 12 Hours) Vital Signs Temp Pulse Pulse Pulse Resp BP BP 11/30/21 03:05 36.8 C 67 20 111/65 11/30/21 00:42 75 11/29/21 23:19 36.7 C 66 20 135/74 11/29/21 22:20 37.1 C 72 16 136/75 11/29/21 20:00 73 18 123/65 Pulse Ox 11/30/21 03:05 93 11/30/21 00:42 11/29/21 23:19 94 11/29/21 22:20 95 11/29/21 20:00 96 Resident Activity Tracking Resident Involvement: Resident Care Provided Care Provided: Adult Hospital Medicine
[2021-11-30] MEDS ORDERED: IMBRUVICA~ORDER AWAITING ACTION SCH (08:00)
[2021-11-30 08:11] LABS: Albumin Globulin Ratio 1.8 (0.9-2); Albumin Level 3.7 gm/dl (3.4-5.0); BUN Creatinine Ratio 24.2 (10-20); Bilirubin Direct 0.4 mg/dl (0-0.2); Calcium 7.8 mg/dl (8.5-10.1); Chol HDL Ratio 3.7 (0-5); Est GFR (Non-African American) 78.5 ml/min; Globulin 2.1 gm/dl (2.5-4.0); Magnesium 1.9 mg/dl (1.7-2.4); Potassium 3.8 mmol/L (3.5-5.1); Total Protein 5.8 gm/dl (6.0-8.3)
[2021-11-30] MEDS: ENOXAPARIN INJ 40 MG/0.4 ML SYR SQ SCH (08:16)
[2021-11-30] MEDS: PRAZOSIN HCL 1 MG CAP PO SCH ×3 (08:16→20:21)
[2021-11-30] MEDS: ATENOLOL 50 MG TABLET PO SCH (08:16)
[2021-11-30] MEDS: TAMSULOSIN HCL 0.4 MG CAP PO SCH (08:16)
[2021-11-30] MEDS: lisinopril 20 MG TAB PO SCH ×2 (08:16→20:22)
--- NOTE | 2021-11-30 08:39 | Electrocardiogram Report ---
Test Reason : Blood Pressure : / mmHG Vent. Rate : 082 BPM Atrial Rate : 082 BPM P-R Int : 132 ms QRS Dur : 100 ms QT Int : 394 ms P-R-T Axes : 041 045 038 degrees QTc Int : 460 ms Normal sinus rhythm Minor Nonspecific ST abnormality Inferior leads Abnormal ECG When compared with ECG of 27-JUL-2016 23:23, No significant change was found Confirmed by Laz Taylor ([id number]) on 11/30/2021 8:39:37 AM Referred By: REFERRED SELF Confirmed By:Laz Taylor
--- NOTE | 2021-11-30 08:40 | Electrocardiogram Report ---
Test Reason : Blood Pressure : / mmHG Vent. Rate : 065 BPM Atrial Rate : 065 BPM P-R Int : 140 ms QRS Dur : 106 ms QT Int : 428 ms P-R-T Axes : 035 012 -15 degrees QTc Int : 445 ms Normal sinus rhythm Diffuse Nonspecific T wave abnormality Abnormal ECG When compared with ECG of 29-NOV-2021 16:47, Nonspecific T wave abnormality now evident in Inferior leads Nonspecific T wave abnormality now evident in Lateral leads Confirmed by Laz Taylor ([id number]) on 11/30/2021 8:40:06 AM Referred By: REFERRED SELF Confirmed By:Laz Taylor
[2021-11-30 08:49] LABS: Hemoglobin 13.4 g/dL (14.0-18.0); Mean Corpuscular Hemoglobin 33.9 pg (25-34); Mean Corpuscular Hgb Conc 35.3 g/dL (32-36); Mean Corpuscular Volume 96.2 fL (80-100); Mean Platelet Volume 11.8 fL (7.4-10.4); Platelet Count 70 K/uL (130-400); RDW Coefficient of Variation 13.5 % (11.5-14.5); RDW Standard Deviation 47.9 fL (36.4-46.3); Red Blood Count 3.95 M/uL (4.7-6.1)
[2021-11-30 08:53] LABS: Basophils # (auto) 0.01 K/uL (0-0.2); Basophils % (auto) 0.2 %; Eosinophils # (auto) 0.05 K/uL (0-0.5); Eosinophils % (auto) 1.2 %; Immature Granulocytes # (auto) 0.01 K/uL (0.00-0.02); Immature Granulocytes % (auto) 0.2 %; Lymphocytes # (auto) 1.06 K/uL (1.2-3.4); Lymphocytes % (auto) 25.2 %; Monocytes # (auto) 0.22 K/uL (0.11-0.59); Monocytes % (auto) 5.2 %; Neutrophils # (auto) 2.85 K/uL (1.4-6.5)
[2021-11-30 08:59] LABS: Estimated Average Glucose 120 mg/dl; Hemoglobin A1C 5.8 % (4.5-5.6)
[2021-11-30] MEDS ORDERED: NITROGLYCERIN SL 0.4 MG/TAB TAB ONE (10:20)
--- NOTE | 2021-11-30 12:52 | XCELERA ---
[id number]
[2021-11-30 15:15] LABS: Albumin Level 3.8 gm/dl (3.4-5.0); BUN Creatinine Ratio 19.3 (10-20); Bilirubin,Total 1.5 mg/dl (0.2-1.0); Calcium 8.7 mg/dl (8.5-10.1); Creatinine Clr Calc Pharmacy 70.6 ml/min; Est GFR (African American) 77.1 ml/min; Est GFR (Non-African American) 66.5 ml/min; Globulin 1.9 gm/dl (2.5-4.0); Potassium 3.9 mmol/L (3.5-5.1); Total Protein 5.7 gm/dl (6.0-8.3)
[2021-11-30 15:41] LABS: Hepatitis B Surf Ag Rflx Conf Neg (Neg)
[2021-11-30] MEDS ORDERED: IMBRUVICA PO SCH (16:00)
[2021-11-30 16:10] LABS: Hepatitis C IgG 13Yrs+Old_Rflx Neg (Neg)
--- NOTE | 2021-11-30 19:23 | Magnetic Resonance Report ---
MR MRCP CLINICAL HISTORY: epigastric pain, transaminitis - ?stone dz TECHNIQUE: Multiplanar multisequence MR images of the abdomen were obtained, as per MRCP protocol. is protocol consists of 3 plane localizer images, axial T1, axial T2, axial T2 fat saturated, coronal T2, MRCP single and MRCP volume sequences of the abdomen were obtained, without intravenous contrast . 1 mg of intramuscular glucagon was administered.. COMPARISON: None available at the time of this dictation. FINDINGS: Lower chest: No acute abnormality Liver: Unremarkable. No focal lesions are seen. Gallbladder and biliary tree: Patient is status post cholecystectomy. Physiologic prominence of the b iliary ducts is noted. Pancreas: Incidental note is made of pancreas divisum. Spleen: There is demonstration multiple T2 hyperintense lesions in the spleen. Adrenals: Unremarkable. Kidneys and ureters: Unremarkable. Bowel: A hiatal hernia is seen. Lymph nodes Retroperitoneal: Unremarkable. Mesenteric: Unremarkable. Peritoneum: Normal Vessels: Unremarkable. Abdominal wall: Unremarkable. Bones: Unremarkable. IMPRESSION: 1. No evidence of choledocholithiasis. 2. Pancreas divisum. 3. Multiple splenic T2 hyperintense lesions are again seen. These are favored to represent hemangiom as given stability despite resolution of lymphadenopathy. Clinical correlation is recommended. ACT 112: Negative or not required by law. Electronically signed by: Dudley Waldrop M.D. 11/30/2021 7:22 PM
[2021-11-30] MEDS: SIMVASTATIN 40 MG TAB PO SCH ×2 (20:21)
[2021-12-01] MEDS: LEVOTHYROXINE SODIUM 200 MCG TABLET PO SCH (05:52)
[2021-12-01 06:26] LABS: Albumin Globulin Ratio 1.7 (0.9-2); Albumin Level 3.5 gm/dl (3.4-5.0); BUN Creatinine Ratio 16.1 (10-20); Bilirubin,Total 1.4 mg/dl (0.2-1.0); Calcium 7.6 mg/dl (8.5-10.1); Creatinine Clr Calc Pharmacy 67.4 ml/min; Est GFR (African American) 74.6 ml/min; Est GFR (Non-African American) 64.4 ml/min; Globulin 2.1 gm/dl (2.5-4.0); Magnesium 1.9 mg/dl (1.7-2.4); Potassium 3.9 mmol/L (3.5-5.1); Total Protein 5.6 gm/dl (6.0-8.3)
[2021-12-01 06:34] LABS: Hematocrit (blood only) 37.5 % (42-52); Mean Corpuscular Hemoglobin 33.7 pg (25-34); Mean Corpuscular Hgb Conc 34.7 g/dL (32-36); Mean Corpuscular Volume 97.2 fL (80-100); Mean Platelet Volume 12.4 fL (7.4-10.4); Nucleated RBC # (auto) 0.04 K/uL (0-0); Nucleated RBC % (auto) 0.9 %; Platelet Count 76 K/uL (130-400); RDW Coefficient of Variation 13.6 % (11.5-14.5); RDW Standard Deviation 47.9 fL (36.4-46.3); Red Blood Count 3.86 M/uL (4.7-6.1); White Blood Count 4.32 K/uL (4.8-10.8)
[2021-12-01 06:35] LABS: Basophils # (auto) 0.01 K/uL (0-0.2); Basophils % (auto) 0.2 %; Eosinophils # (auto) 0.05 K/uL (0-0.5); Eosinophils % (auto) 1.2 %; Lymphocytes # (auto) 0.77 K/uL (1.2-3.4); Lymphocytes % (auto) 17.8 %; Monocytes # (auto) 0.85 K/uL (0.11-0.59); Monocytes % (auto) 19.7 %; Neutrophils # (auto) 2.64 K/uL (1.4-6.5); Neutrophils % (auto) 61.1 %; RBC Morphology Unremarkable
--- NOTE | 2021-12-01 06:57 | Discharge Summary ---
Date of Service December 01, 2021 Admission HPI Per Admitting Provider 76 YOM with past medical history of: 4V CABG, CLL, insomnia, HLD, HTN, DM II, BPH, Cholecystectomy. Patient comes to the emergency room today for acute onset of substernal chest pain that occurred around 1500 today. Patient was sitting in his chair following eating a sandwich. He originally felt that is was gastric in nature, as this is the same pain he felt when he got his gallbladder out, he took antacids (which normally help), but the pain continued to get worse. The pain did not radiate, was not associated with dyspnea, diaphoresis, or vomiting. He did report some nausea, but feels this was secondary to the pain. He called EMS and by the time EMS got him the pain was relieved. He did receive an ASA and NTG enroute, and remains chest pain free at this time. Will remove his NTP that was placed in EMD as want to know if symptoms return. His ECG is negative for dyanmic changes and his Troponin I was negative. Patient endorses that he did drive to [place] today and did some shopping and retu rned home without any symptoms and was without stress. He continues to do tasks around the house, castañeda, and go up and down stairs without any dyspnea or chest pain. He endorses some lower leg swelling in his right leg that is chronic following his bypass surgery and wears compression hose normally. Patient will be brought in for trending of troponin and symptoms with further risk stratification in the morning. Patient COVID test is: NEGATIVE upon admission Admission Exam Per Admitting Provider PHYSICAL EXAM: General: awake, alert, no apparent distress Head: Normocephalic, atraumatic ENT: PERRL, EOMI, no pharyngeal exudate, mucous membranes moist Neuro: AAO x 3, speech clear and appropriate, strength intact bilaterally 5/5, sensation intact and equal all extremities and dermatomes, no pronator drift Chest: equal rise and fall of the chest, no accessory muscle use, no heaves or thrills, Clear to auscultation, on room air, Cardiac: Regular rate and rhythm, telemetry reviewed, skin warm dry, cap refill <3 seconds, peripheral pulses +2 no JVD, no murmur, no edema GI: NABS x 4 quadrants, soft, nontender to palpation, no rebound, guarding or tenderness : Spontaneously voiding, no pain, no CVA tenderness, Extremities: Normal inspection, no peripheral edema or erythema, calfs nontender to palpation Psych: Normal mood and affect Skin: no rash or erythema Principal Diagnosis noncardiac chest pain Discharge Exam General: Healthy appearing 76-year-old male no acute distress. HEENT: No JVD. Cardiac: Normal rate and regular rhythm; S1 and S2 present with no murmurs, rubs, or gallops. Pulmonary: Good respiratory effort with symmetric expansion of the chest. No use of accessory muscles. Lungs were clear to auscultation bilaterally with no crackles or wheezes. Abdominal: Normoactive bowel sounds. Abdomen was soft, nondistended, and non- tender to palpation, including the epigastrum. Extremities: Upper and lower extremities are warm and well perfused. Discharge Data Allergies Allergy/AdvReac Type Severity Reaction Status Date / Time clopidogrel AdvReac Severe SEVERE Verified 11/29/21 19:11 SUBCUTANEOUS BLEEDING BOTH ARMS glimepiride [From Amaryl] AdvReac Severe Increased Verified 11/29/21 19:11 liver enzymes Sulfa (Sulfonamide AdvReac Severe Increased Verified 11/29/21 19:11 Antibiotics) liver enzymes sulfamethoxazole AdvReac Severe INCREASED Verified 11/29/21 19:11 [From Bactrim] LIVER ENZYMES trimethoprim [From Bactrim] AdvReac Severe INCREASED Verified 11/29/21 19:11 LIVER ENZYMES Opioids - Morphine Analogues AdvReac Intermediate severe Verified 11/29/21 19:11 constipation Consultations 11/29/21 19:16 ED Decision to Admit Stat Ordered Studies 11/29/21 17:43 US liver Stat IMPRESSION: 1. Status post cholecystectomy with normal common bile duct. No intrahepatic biliary duct dilatation. 11/30/21 15:39 MR MRCP CLINICAL HISTORY: epigastric pain, transaminitis - ?stone dz TECHNIQUE: Multiplanar multisequence MR images of the abdomen were obtained, as per MRCP protocol. This protocol consists of 3 plane localizer images, axial T1, axial T2, axial T2 fat saturated, coronal T2, MRCP single and MRCP volume sequences of the abdomen were obtained, without intravenous contrast. 1 mg of intramuscular glucagon was administered.. COMPARISON: None available at the time of this dictation. FINDINGS: Lower chest: No acute abnormality Liver: Unremarkable. No focal lesions are seen. Gallbladder and biliary tree: Patient is status post cholecystectomy. Physiologic prominence of the biliary ducts is noted. Pancreas: Incidental note is made of pancreas divisum. Spleen: There is demonstration multiple T2 hyperintense lesions in the spleen. Adrenals: Unremarkable. Kidneys and ureters: Unremarkable. Bowel: A hiatal hernia is seen. Lymph nodes Retroperitoneal: Unremarkable. Mesenteric: Unremarkable. Peritoneum: Normal Vessels: Unremarkable. Abdominal wall: Unremarkable. Bones: Unremarkable. IMPRESSION: 1. No evidence of choledocholithiasis. 2. Pancreas divisum. 3. Multiple splenic T2 hyperintense lesions are again seen. These are favored to represent hemangiomas given stability despite resolution of lymphadenopathy. Clinical correlation is recommended. 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 Chest Pain Transient substernal chest pain that occurred approx. 30 minutes after eating on 11/29. No exertional symptoms. Work-up as follows: History of CAD status post CABG x4 noted Reported similar episodes in the past relieved with antacids over last two years -- usually associated after eating. No regular NSAIDs/EtOH. Troponin negative x 3 Evidence of transaminitis and indirect hyperbilirubinemia (see below) ECG without any evidence of repolarization or conduction abnormalities, no evidence of pathologic Q waves Exercise stress echo revealing: Technically nondiagnostic due to failure to achieve target HR (on BB); however, no ECG/TTE e/o ischemia, symptoms, ectopy, dysrhythmias MRCP: No evidence of hepatobiliary dysfunction. Splenic lesions likely c/w hemangiomas noted. Based on the otherwise negative cardiac work-up above and the close prandial relationship this has had (both this time and in the past), suspect that etiology of this is likely gastroesophageal or hepatobiliary in nature. --> May represent underlying Sphincter of Yogesh dysfunction vs. passed gallstone in setting of bumped LFTs and transient resolution. --> Also considered: GERD, PUD, esophageal spasms. Will initiate patient on pantoprazole 40 mg daily empirically Can consider further testing for H. pylori if indicated as an outpatient (2) Abnormal LFTs: On arrival, patient noted to have mild transaminitis and direct hyperbilirubinemia -- which initially worsened DOA#1, but then improved prior to d/c --> Discharge LFTs: AST 98 (from max of 315), ALT 188 (from max of 317), TBili 1.4 (from max of 2.0) Right upper quadrant ultrasound negative for acute/chronic pathology, including biliary distention MRCP: No evidence of hepatobiliary dysfunction. Splenic lesions likely c/w hemangiomas noted. Unclear etiology. ALT was normal on admission, indicating that change is likely acute. May have represented Sphincter of Yogesh dysfunction or transiently blocked then passed stone resulting in transient liver stress No new RX other than Nitro given en route to ED. No infectious symptoms. 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 Consider GI consultation as outpatient to clarify whether or not Sphincter of Yogesh manometry would be indicated based on the above Recheck CMP within 1 week fo discharge (3) Dyslipidemia: Continue simvastatin 40 In June 2021, [facility] records reveal LDL under 70 Lipids checked here are at-goal: Chol 101 / LDL 49 / HDL 27 / TG 124 (4) Diabetes: Continue basal/bolus insulin with AC at bedtime glucose checks Last A1c in June 2021 5.5% Repeat A1c checked here at 5.8% (5) BPH (benign prostatic hyperplasia): Continue Flomax and prazosin (6) CLL (chronic lymphocytic leukemia): History noted. No significant findings on labs today Continue Imbruvica on d/c (7) Hypertension: Well controlled. Continue lisinopril, atenolol Code: Patient identified as DNR/DNI during this admission Total Time Total Time Spent Total Time Spent (In Minutes): 30 Discharge Plan Discharge Items Patient Disposition: Home - Self-Care Reason For Visit: CHEST PAIN Discharge Diagnosis: chest pain elevated liver enzymes Activity: Per Instructions section Non-emergency contact: Primary Care Provider Call non-emergency contact if: you have any medication questions, your symptoms worsen, your pain is worsening, your pain is unusual for you and your temperature is above 101 Follow-up/Referrals: Yuki Elliott MD [Primary Care Provider] - 12/07/21 9:10 am Diet: Heart Healthy Addtl Attending Provider Instructions: You were seen in [facility] for evaluation of chest pain. Upon your arrival, you underwent several tests to determine the cause of this pain. Thankfully, your imaging, labs, and exercise stress test (obtained to see if the heart arteries were clogged) did not show evidence of any heart stress, damage, or failure. Given that multiple episodes of this pain have occurred over time, usually with relationship to some sort of food consumption, it is possible that this pain may have originated from a source within the stomach/esophagus. Examples include reflux, peptic ulcers, and esophageal spasms. Incidentally, you were also noticed to have mildly elevated liver enzymes on arrival here. You underwent an ultrasound to visualize the liver, which thankfully did not show any abnormalities. You further underwent a special type of MRI that looked at your liver/bile ducts, which thankfully did not show any relatable findings. Prior to discharge, your liver tests improved. Given this work-up, you may consider talking with your PCP regarding GI consultation after leaving the hospital for further testing /monitoring, if indicated. Given your reassuring work-up, you were cleared for discharge home. You were started on 1 new medicationpantoprazole (Protonix) 40 mg dailywhich you should continue taking over the next 6 to 8 weeks, and then follow-up with your primary care provider. Otherwise, no changes were made to your medication regimen. Please follow-up with your primary care physician's office within 1 week to review this visit, including new medications. Please also obtain a repeat set of lab work (to check your liver enzymes) within the next 1 week. In the interim, if you experience any worsening chest pain, palpitations, shortness of breath, lightheadedness, dizziness, or any other worrisome symptoms, please report to the emergency room for immediate evaluation. It was a pleasure taking care of you during your stay here, we wish you all the best in your recovery. Pending Studies at Discharge: No Stand-Alone Forms: [facility] city[facility], Smoking Cessation Medications and DC Order Prescriptions: Continued metformin 850 mg Tablet 850 mg PO BID RF: 0 simvastatin [Zocor] 40 mg Tablet 40 mg PO HS RF: 0 tamsulosin [Flomax] 0.4 mg Capsule 0.4 mg PO QAM RF: 0 levothyroxine [Synthroid] 200 mcg Tablet 200 mcg PO DAILYBB RF: 0 Multivitamin 50 Plus Tablet 1 tab PO QAM RF: 0 Basaglar KwikPen U-100 Insulin 100 unit/mL (3 mL) insulin pen 14 unit subcut HS RF: 0 Imbruvica 420 mg tablet 420 mg PO DAILY@1600 RF: 0 insulin aspart U-100 [Novolog U-100 Insulin aspart] 100 unit/mL Solution 0 unit SUBCUT USEASDIRECTD PRN (Reason: Unknown) RF: 0 atenolol [Tenormin] 50 mg tablet 50 mg PO QAM RF: 0 lisinopril 20 mg tablet 20 mg PO BID RF: 0 eszopiclone [Lunesta] 2 mg Tablet 2 mg PO HS PRN (Reason: Sleep) RF: 0 prazosin [Minipress] 2 mg capsule 4 mg PO BID RF: 0 cephalexin 250 mg capsule 250 mg PO DIRECTED PRN (Reason: CUTS/SCRAPES/ETC.) RF: 0 Discharge Orders: Discharge Order (Routine); Ordered 12/01/21 Ordered By: Celso Henriquez Admission Data Admit Date/Time: 11/29/21 19:51 Attending Provider: Yuki Elliott Admit Provider: Rome Wood Primary Care Provider: Yuki Elliott Other Providers: Rome Wood Other Interventions: Discharge Summary Assessment (RN) Last Done: 12/01/21 11:12 Supervising Physician Co-Signing Physician Notes Resident Physician Supervision Note: I independently interviewed and examined the patient and verified the almanzar history and physical, reviewed labs and image studies and agree with resident Dr. Henriquez findings and care plan. Resident Activity Tracking Resident Involvement: Resident Care Provided Care Provided: Adult Hospital Medicine
[2021-12-01] MEDS: ENOXAPARIN INJ 40 MG/0.4 ML SYR SQ SCH (08:19)
[2021-12-01] MEDS: INSULIN ASPART PER UNIT SC SCH ×2 (08:19→12:26)
[2021-12-01] MEDS: PRAZOSIN HCL 1 MG CAP PO SCH (08:19)
[2021-12-01] MEDS: TAMSULOSIN HCL 0.4 MG CAP PO SCH (08:20)
[2021-12-01] MEDS: ATENOLOL 50 MG TABLET PO SCH (08:20)
[2021-12-01] MEDS: lisinopril 20 MG TAB PO SCH (08:20)
[2021-12-01] MEDS ORDERED: PANTOprazole 40 MG TAB PO SCH (09:00)
== END 2021-12-01 12:57 | disposition home or self-care (01) ==
LOC: ED 16:42 → 2N 16:42 → SUATTDRO 19:51 → 2N 20:51

== ENCOUNTER 2022-03-12 08:26 | Inpatient (IN) ==
[2022-03-12] MEDS ORDERED: ONDANSETRON INJ 2 MG/ML 2 ML VIAL ONE (08:52)
[2022-03-12] MEDS ORDERED: SODIUM CHLORIDE 0.9% 1000ML 1,000 ML IV ONE (08:53)
[2022-03-12] MEDS ORDERED: CEFEPIME 2,000 MG/20 ML VIAL IV STA (08:54)
--- NOTE | 2022-03-12 09:00 | Emergency Department Note ---
Impression & Plan Hypoxia, Syncope, Vomiting, Pneumonia, COVID-19 ED Provider Note NAME: DAQUAN DUMONT AGE: 76 SEX: M : 1945 ARRIVES VIA: Walk-In INFORMANT: [Patient][] ED PROVIDER(S): [Marquez Vu MD] CHIEF COMPLAINT: Illness HISTORY OF PRESENT ILLNESS: The patient is a 76-year-old male who has a history of CLL. He is immunocompromised. The patient is vaccinated for COVID 19x4. On Sunday, 2 days ago, he began to feel unwell. Yesterday, he took a COVID test and it was positive. Patient has had a fever, chills, sore throat, diarrhea and nausea. No vomiting. He is coughing but is not short of breath. No black or bloody stool. Today, the patient seemed worse. He was very weak. He was brought for evaluation. On the way to his room here in the ED, he had a syncopal event in the wheelchair. Triage blood pressure was low in the 90s systolic. The patient currently denies any chest pain. He still complains of nausea. He is not currently short of breath. REVIEW OF SYSTEMS: See HPI for pertinent positives and negatives. A total of ten systems were reviewed and were otherwise negative. PMHx/PSHx: See Below SOCIAL HISTORY: See Below. PHYSICAL EXAM: GENERAL: Patient is in mild distress on the stretcher. HEENT: No acute trauma, normocephalic atraumatic, mucous membranes dry, no nasal congestion, no scleral icterus. NECK: No stridor, no adenopathy, no meningismus, trachea is midline. LUNGS: Clear to auscultation bilaterally when listening anterior--a posterior exam was not performed as the patient was feeling quite ill and was having a difficult time cooperating. No wheeze, no rhonchi, breath sounds equal. HEART: Without murmurs gallops or rubs, regular rate and rhythm. ABDOMEN: Soft, nontender, bowel sounds positive, no peritonitis. EXTREMITIES: No cyanosis or edema, full range of motion of all the joints without pain or difficulty, no signs for acute trauma. NEUROLOGIC: Oriented x 3, no acute motor or sensory deficits, no focal weakness. SKIN: No rash, no jaundice, mild diaphoresis. Pale. DIFFERENTIAL DIAGNOSIS: Infection, dehydration, metabolic abnormality, COVID-19, influenza, sepsis, imm unocompromise, hypo/hyperglycemia, electrolyte disturbance, anemia, hypoxia, cardiac sources, intracerebral event, toxicologic issues, stroke, TIA, as well as other pathologies. EMERGENCY DEPARTMENT COURSE/PROCEDURES: ECG: Indication was weakness and syncope. The ECG shows a normal sinus rhythm with a rate of 65. There is no ST elevation, no PVCs. There is some poor R wave progression. The QTC is 438. Continuous Cardiac Monitoring: An order was placed for continuous cardiac monitoring. The monitor shows a rate of 80 with normal sinus rhythm. Critical Care Note: I have personally spent 51 minutes of critical care time in the direct management of this patient. This includes bedside care, interpretati on of diagnostic studies, and testing, discussion with consultants, patient, and family members, and other required patient management activities. This 51 minutes is in excess of all separately billable procedures. MEDICAL DECISION MAKING: There is no leukocytosis or concerning anemia. Platelet count was low, the patient has a history of a lower platelet count. No renal failure or significant electrolyte abnormality. Lactic acid level was not elevated making severe sepsis less likely. Bilirubin was slightly elevated, the remaining liver enzymes were unremarkable. The patient appeared to be in a euthyroid state. COVID test returned positive. Influenza and RSV test returned negative. Chest film shows what I believed to be a left lower lobe infiltrate, there was no heart failure. On exam, the patient was quite nauseated and did vomit a few times in the ED. He was sweaty on my first evaluation. He was hypoxic requiring O2 supplementation. Patient received IV saline, 1 L. He was given IV Zofran for nausea, he was given 3 doses of 4 mg over his time in the ED. He received IV Phenergan for nausea. He received IV Decadron, IV cefepime and a DuoNeb. The patient does seem to be doing better. He is still requiring oxygen but is more comfortable and is resting. I do believe the patient requires a hospital stay. He is hypoxic with what I t hink is a pneumonia at the left lower lung. He is immunocompromised. He is COVID-positive. He had a syncopal event here in the ED. He has been vomiting despite several doses of IV anti-nausea medication. I spoke with the patient and his family, I spoke with case management, the on- call hospitalist was consulted. Past Med/Surg History Medical History Abnormal LFTs Acute chest pain BPH (benign prostatic hyperplasia) Callus Cancer SKIN CANCER REMOVAL Diabetes mellitus, type 2 Hearing deficit Hyperlipidemia Hypertension Hypothyroidism Kidney stones Leukemia CLL (CHEMO) Osteoarthritis Pulmonary nodule BEING MONITORED Type 2 diabetes mellitus with diabetic neuropathy Ulcer of right heel and midfoot Surgical History Fusion of spine LUMBAR H/O four vessel coronary artery bypass graft History of cardiac cath CHEST PAIN>13 YEARS AGO History of cholecystectomy History of cholecystectomy History of colonoscopy History of coronary artery bypass graft 4 VESSELS (13 YEARS AGO) History of cystoscopy KIDNEY STONE REMOVAL History of thyroidectomy, total BENIGN (MULTIPLE RADIATION TREATMENT FOR ACNE AT AGE 14) History of tonsillectomy History of tooth extraction Previous back surgery Family History Grandfather Family history of diabetes mellitus Social History Smoking Status: Former smoker Tobacco Type: Cigarettes Cigarettes Per Day: QUIT 1984; Second Hand Exposure: No; Do You Dip or Chew Tobacco: No; Hx Alcohol Use: Yes Alcohol type: beer Hx Substance Use: No Preferred Language: [place] Communication Ability: Effective Visual Impairment: Limited Hearing Ability: Normal Wildlife Policy Professional Required: No Beliefs That Will Affect Care: None marital status: Current Living Situation: Spouse current occupational status: retired Other Information That Helps Us Care for You: No Feels Safe at Home: Yes Safety Concerns: Feels Safe At This Time Assistive Devices: None Allergies Allergies Allergy/AdvReac Type Severity Reaction Status Date / Time clopidogrel AdvReac Severe SEVERE Verified 03/12/22 15:01 SUBCUTANEOUS BLEEDING BOTH ARMS glimepiride [From Amaryl] AdvReac Severe Increased Verified 03/12/22 15:01 liver enzymes Sulfa (Sulfonamide AdvReac Severe Increased Verified 03/12/22 15:01 Antibiotics) liver enzymes sulfamethoxazole AdvReac Severe INCREASED Verified 03/12/22 15:01 [From Bactrim] LIVER ENZYMES trimethoprim [From Bactrim] AdvReac Severe INCREASED Verified 03/12/22 15:01 LIVER ENZYMES Opioids - Morphine Analogues AdvReac Intermediate severe Verified 03/12/22 15:01 constipation Home Meds Home Medications Medication Instructions Recorded Confirmed levothyroxine 200 mcg tablet 200 mcg PO DAILYBB 07/30/18 03/12/22 (Synthroid) metformin 850 mg tablet 850 mg PO BID 07/30/18 03/12/22 [id number] 1 tab PO QAM 07/30/18 03/12/22 tablet (Multivitamin 50 Plus) simvastatin 40 mg tablet (Zocor) 40 mg PO HS 07/30/18 03/12/22 tamsulosin 0.4 mg capsule (Flomax) 0.4 mg PO QAM 07/30/18 03/12/22 ibrutinib 420 mg tablet (Imbruvica) 420 mg PO DAILY@1600 05/03/19 03/12/22 insulin glargine 100 unit/mL (3 14 unit SUBCUT HS 05/03/19 03/12/22 mL) subcutaneous pen (Basaglar KwikPen U-100 Insulin) insulin aspart U-100 100 unit/mL 0 unit SUBCUT USEASDIRECTD PRN 07/23/19 03/12/22 subcutaneous solution (Novolog U-100 Insulin aspart) atenolol 50 mg tablet (Tenormin) 50 mg PO QAM tab 07/31/19 03/12/22 prazosin 2 mg capsule (Minipress) 4 mg PO BID 01/02/21 03/12/22 eszopiclone 2 mg tablet (Lunesta) 2 mg PO HS PRN 11/29/21 03/12/22 lisinopril 20 mg tablet 20 mg PO BID 11/29/21 03/12/22 nitroglycerin 0.4 mg sublingual 0.4 mg SUBLINGUAL DIRECTED PRN 03/12/22 03/12/22 tablet Results & Data (ED) Vital Signs Vital Signs - 24 hr 03/12/22 08:34 03/12/22 09:15 03/12/22 09:30 Temperature 37.1 C Temperature Source Oral Pulse Rate 80 58 L Pulse Rate from SpO2 Sensor Respiratory Rate 16 20 Respiratory Effort / Characteristics Non-Labored Respiratory Depth Normal Respiratory Pattern Regular Blood Pressure 96/60 L 122/50 L 133/67 Blood Pressure Mean 72 74 89 Pulse Oximetry 90 94 Oxygen Delivery Method Room Air Oxymask Oxygen Flow Rate 3 Sepsis Recent Fever Within 48 Hours Yes Sepsis New/Unexplained Change in Mental Status N/A Sepsis Action Taken by Nursing No Action Required 03/12/22 09:45 03/12/22 10:00 03/12/22 10:15 Temperature Temperature Source Pulse Rate 58 L 57 L Pulse Rate from SpO2 Sensor 58 L 57 L Respiratory Rate 23 19 Respiratory Effort / Characteristics Respiratory Depth Respiratory Pattern Blood Pressure 138/76 139/70 142/70 H Blood Pressure Mean 96 93 94 Pulse Oximetry 95 100 100 Oxygen Delivery Method Nasal Cannula Nasal Cannula Oxygen Flow Rate 2 2 Sepsis Recent Fever Within 48 Hours Sepsis New/Unexplained Change in Mental Status Sepsis Action Taken by Intermediate Medications Current Medication List: was personally reviewed by me Laboratory Data Attestation: I reviewed the patient's lab results. Result diagrams: 03/12/22 08:55 03/12/22 08:55 Lab Results 03/12/22 03/12/22 03/12/22 Range/Units 08:55 08:55 08:55 WBC 9.69 (4.8-10.8) K/uL RBC 4.29 L (4.7-6.1) M/uL Hgb 14.2 (14.0-18.0) g/dL Hct 41.1 L (42-52) % MCV 95.8 (80-100) fL MCH 33.1 (25-34) pg MCHC 34.5 (32-36) g/dL RDW Std Deviation 48.3 H (36.4-46.3) fL RDW Coeff of Irina 13.8 (11.5-14.5) % Plt Count 82 L (130-400) K/uL MPV 12.0 H (7.4-10.4) fL Immature Gran % (Auto) 0.2 % Neut % (Auto) 67.0 % Lymph % (Auto) 13.9 % [place] % (Auto) 18.8 % Eos % (Auto) 0.0 % Baso % (Auto) 0.1 % Neut # (Auto) 6.49 (1.4-6.5) K/uL Lymph # (Auto) 1.35 (1.2-3.4) K/uL [place] # (Auto) 1.82 H (0.11-0.59) K/uL Eos # (Auto) 0.00 (0-0.5) K/uL Baso # (Auto) 0.01 (0-0.2) K/uL Immature Gran # (Auto) 0.02 (0.00-0.02) K/uL Sodium 137 (136-145) mmol/L Potassium 4.0 (3.5-5.1) mmol/L Chloride 105 (98-107) mmol/L Carbon Dioxide 21 (21-32) mmol/L Anion Gap 11 (3-11) BUN 19 (6-23) mg/dl Creatinine 1.30 (0.6-1.4) mg/dl Est Cr Clr Drug Dosing 60.0 ml/min Est GFR ( Amer) 62.3 ml/min Est GFR (Non-Af Amer) 53.8 ml/min BUN/Creatinine Ratio 14.6 (10-20) Glucose 182 H (70-99(Fasting)) mg/dl Lactate (0.4-2.0) mmol/L Calcium 8.9 (8.5-10.1) mg/dl Magnesium 1.7 (1.7-2.4) mg/dl Total Bilirubin 1.9 H (0.2-1.0) mg/dl AST 26 (13-39) U/L ALT 16 (7-52) U/L Alkaline Phosphatase 43 (34-104) U/L Troponin I High Sens 10.2 (0-20) pg/ml Total Protein 6.5 (6.0-8.3) gm/dl Albumin 4.3 (3.4-5.0) gm/dl Globulin 2.2 L (2.5-4.0) gm/dl Albumin/Globulin Ratio 2.0 (0.9-2) TSH 0.346 (0.300-4.500) uIu/ml SARS-CoV-2 (PCR) (Negative) Influenza Type A (PCR) (Neg) Influenza Type B (PCR) (Neg) RSV (RT-PCR) (Neg) 03/12/22 03/12/22 Range/Units 09:10 09:10 WBC (4.8-10.8) K/uL RBC (4.7-6.1) M/uL Hgb (14.0-18.0) g/dL Hct (42-52) % MCV (80-100) fL MCH (25-34) pg MCHC (32-36) g/dL RDW Std Deviation (36.4-46.3) fL RDW Coeff of Irina (11.5-14.5) % Plt Count (130-400) K/uL MPV (7.4-10.4) fL Immature Gran % (Auto) % Neut % (Auto) % Lymph % (Auto) % [place] % (Auto) % Eos % (Auto) % Baso % (Auto) % Neut # (Auto) (1.4-6.5) K/uL Lymph # (Auto) (1.2-3.4) K/uL [place] # (Auto) (0.11-0.59) K/uL Eos # (Auto) (0-0.5) K/uL Baso # (Auto) (0-0.2) K/uL Immature Gran # (Auto) (0.00-0.02) K/uL Sodium (136-145) mmol/L Potassium (3.5-5.1) mmol/L Chloride (98-107) mmol/L Carbon Dioxide (21-32) mmol/L Anion Gap (3-11) BUN (6-23) mg/dl Creatinine (0.6-1.4) mg/dl Est Cr Clr Drug Dosing ml/min Est GFR ( Amer) ml/min Est GFR (Non-Af Amer) ml/min BUN/Creatinine Ratio (10-20) Glucose (70-99(Fasting)) mg/dl Lactate 1.2 (0.4-2.0) mmol/L Calcium (8.5-10.1) mg/dl Magnesium (1.7-2.4) mg/dl Total Bilirubin (0.2-1.0) mg/dl AST (13-39) U/L ALT (7-52) U/L Alkaline Phosphatase (34-104) U/L Troponin I High Sens (0-20) pg/ml Total Protein (6.0-8.3) gm/dl Albumin (3.4-5.0) gm/dl Globulin (2.5-4.0) gm/dl Albumin/Globulin Ratio (0.9-2) TSH (0.300-4.500) uIu/ml SARS-CoV-2 (PCR) POSITIVE A* (Negative) Influenza Type A (PCR) Negative (Neg) Influenza Type B (PCR) Negative (Neg) RSV (RT-PCR) Negative (Neg) Administered Medications Enoxaparin Sodium (Enoxaparin Inj 40 Mg/0.4 Ml Syr) 40 mg SQ Q24H TERENCE Stop: 04/11/22 15:59 Last Admin: 03/12/22 15:44 Dose: 40 mg Documented by: [id number] Azithromycin 500 mg/ Dextrose 255 mls @ 125 mls/hr IV DAILY@1130 TERENCE Stop: 03/19/22 11:29 Last Infusion: 03/12/22 14:05 Dose: 0 mls/hr Documented by: [id number] Admin: 03/12/22 11:49 Dose: 125 mls/hr Documented by: [id number] Remdesivir 200 mg/ Sodium (Chloride) 250 mls @ 125 mls/hr IV 1500 ONE; Protocol Stop: 03/12/22 16:59 Last Admin: 03/12/22 15:44 Dose: 125 mls/hr Documented by: [id number] Lactated Ringer's (Lr) 1,000 mls @ 80 mls/hr IV .[id number] TERENCE Stop: 03/13/22 03:29 Last Admin: 03/12/22 15:44 Dose: 80 mls/hr Documented by: [id number] Discontinued Medications Albuterol (Albut/Ipratrop 3mg/0.5mg Neb 3 Ml Vial) 3 ml NEB NOW STA; Protocol Stop: 03/12/22 09:37 Last Admin: 03/12/22 10:43 Dose: 3 ml Documented by: [id number] Dexamethasone Sodium Phosphate (DexamethasonePf 10 Mg/Ml Vial) 6 mg IV NOW ONE Stop: 03/12/22 09:37 Last Admin: 03/12/22 09:52 Dose: 6 mg Documented by: [id number] Sodium Chloride (Nss 1000ml) 1,000 mls @ 999 mls/hr IV .[id number] ONE Stop: 03/12/22 09:53 Last Infusion: 03/12/22 10:14 Dose: 0 mls/hr Documented by: [id number] Admin: 03/12/22 09:05 Dose: 999 mls/hr Documented by: [id number] Cefepime HCl (Maxipime) 2,000 mg in 20 mls @ 5 mls/min IV NOW STA; Protocol Stop: 03/12/22 08:57 Last Admin: 03/12/22 09:15 Dose: 5 mls/min Documented by: [id number] Promethazine HCl (Phenergan) 6.25 mg in 50.25 mls @ 201 mls/hr IV NOW STA Stop: 03/12/22 09:52 Last Infusion: 03/12/22 10:49 Dose: 0 mls/hr Documented by: [id number] Admin: 03/12/22 09:59 Dose: 201 mls/hr Documented by: [id number] Ondansetron HCl (Ondansetron Inj 2 Mg/Ml 2 Ml Vial) Confirm Administered Dose 4 mg .ROUTE .STK-MED ONE Stop: 03/12/22 08:53 Last Admin: 03/12/22 09:05 Dose: 4 mg Documented by: [id number] Ondansetron HCl (Ondansetron Inj 2 Mg/Ml 2 Ml Vial) 4 mg IV NOW STA Stop: 03/12/22 09:39 Last Admin: 03/12/22 09:52 Dose: 4 mg Documented by: [id number] Imaging Data Attestation: I personally reviewed and interpreted this imaging study as follows: My Impression: Chest x-ray: As per my review there appears to be a left base infiltrate, no CHF or pneumothorax. Radiologist's Impression: Chest X-Ray 03/12/22 08:54 XR chest 1V portable CLINICAL HISTORY: weakness. Evaluate cardiopulmonary status COMPARISON STUDY: 11/29/2021 TECHNIQUE: 1 view of the chest FINDINGS: Single frontal view of the chest demonstrates the heart to be enlarged status post previous cardiothoracic surgery. There is a decreased inspiratory effort with elevation of the hemidiaphragms and crowding of the bronchovascular markings at the lung bases and centrally. The lungs are clear of alveolar opacities. There is no evidence for pleural effusion. There is no evidence for vascular congestion. There is no acute osseous pathology. IMPRESSION: 1. There is a decreased inspiratory effort with otherwise no acute chest disease. ACT 112: Negative or not required by law. Electronically signed by: Blaine Magaña M.D. 03/12/2022 9:52 AM Discharge Plan Visit Data Chief Complaint: Illness Stated Complaint: COVID+, FEVER, CHILLS, REFERRED BY MD OFFICE ED Provider: Marquez Vu Discharge Problem: Hypoxia, Syncope, Vomiting, Pneumonia, COVID-19 Patient Disposition: Admitted As Inpatient Condition: Fair Discharge Instructions Interventions: ED Discharge Assessment Last Done: 03/12/22 13:45
[2022-03-12 09:20] LABS: Hematocrit (blood only) 41.1 % (42-52); Hemoglobin 14.2 g/dL (14.0-18.0); Mean Corpuscular Hemoglobin 33.1 pg (25-34); Mean Corpuscular Hgb Conc 34.5 g/dL (32-36); Mean Corpuscular Volume 95.8 fL (80-100); Platelet Count 82 K/uL (130-400); RDW Coefficient of Variation 13.8 % (11.5-14.5); RDW Standard Deviation 48.3 fL (36.4-46.3); Red Blood Count 4.29 M/uL (4.7-6.1); White Blood Count 9.69 K/uL (4.8-10.8)
[2022-03-12] MEDS ORDERED: dexAMETHasone**PF** 10 MG/ML VIAL IV ONE (09:36)
[2022-03-12] MEDS ORDERED: ALBUT/IPRATROP 3MG/0.5MG NEB 3 ML VIAL NEB STA (09:36)
[2022-03-12] MEDS ORDERED: ONDANSETRON INJ 2 MG/ML 2 ML VIAL IV STA ×2 (09:38→10:27)
[2022-03-12] MEDS ORDERED: PROMETHAZINE 6.25 MG/50.25 ML BAG IV STA (09:38)
[2022-03-12 09:45] LABS: Troponin I High Sensitivity 10.2 pg/ml (0-20)
[2022-03-12 09:55] LABS: Basophils # (auto) 0.01 K/uL (0-0.2); Basophils % (auto) 0.1 %; Immature Granulocytes # (auto) 0.02 K/uL (0.00-0.02); Immature Granulocytes % (auto) 0.2 %; Lymphocytes # (auto) 1.35 K/uL (1.2-3.4); Lymphocytes % (auto) 13.9 %; Monocytes # (auto) 1.82 K/uL (0.11-0.59); Monocytes % (auto) 18.8 %; Neutrophils # (auto) 6.49 K/uL (1.4-6.5)
--- NOTE | 2022-03-12 09:55 | XRay Report ---
XR chest 1V portable CLINICAL HISTORY: weakness. Evaluate cardiopulmonary status COMPARISON STUDY: 11/29/2021 TECHNIQUE: 1 view of the chest FINDINGS: Single frontal view of the chest demonstrates the heart to be enlarged status post previous cardiotho racic surgery. There is a decreased inspiratory effort with elevation of the hemidiaphragms and crowd ing of the bronchovascular markings at the lung bases and centrally. The lungs are clear of alveolar opacities. There is no evidence for pleural effusion. There is no evidence for vascular congestion. T here is no acute osseous pathology. IMPRESSION: 1. There is a decreased inspiratory effort with otherwise no acute chest disease. ACT 112: Negative or not required by law. Electronically signed by: Blaine Magaña M.D. 03/12/2022 9:52 AM
[2022-03-12 10:13] LABS: Albumin Level 4.3 gm/dl (3.4-5.0); BUN Creatinine Ratio 14.6 (10-20); Bilirubin,Total 1.9 mg/dl (0.2-1.0); Calcium 8.9 mg/dl (8.5-10.1); Est GFR (African American) 62.3 ml/min; Est GFR (Non-African American) 53.8 ml/min; Globulin 2.2 gm/dl (2.5-4.0); Magnesium 1.7 mg/dl (1.7-2.4); Total Protein 6.5 gm/dl (6.0-8.3)
[2022-03-12 10:24] LABS: Influenza A virus by PCR Negative (Neg); Influenza B virus by PCR Negative (Neg); RSV by PCR Negative (Neg)
--- NOTE | 2022-03-12 10:43 | History & Physical Report ---
Date of Service March 12, 2022 Assessment & Plan (1) COVID: Plan: Pt has GI symptoms and breifly was hypoxic in er, does not have pneumonia on presentation is 2 days into symptom complex, with hypoxia does qualify for treatment, Remdesivir Decadron Continue Imbruvica as per recommendations Supplemental oxygen Given the abnormal auscultative exam of this patient's lungs he will be continued on azithromycin and repeat chest x-ray will be performed on 03/13 although this could be the beginnings of COVID-pneumonia and not bacterial infection. A CRP will also be followed (2) Hypertension: Plan: Pt did have syncope on presentation and is with nausea and diarrhea, was given IVf in ER continue atenolol, tamsulosin, prazosin reduce lisinopril to 20 mg daily from BID (3) Diabetes: Plan: pt will be on basal bolus, but due to decadron if poorly controlled consider adding NPH at 0.4 U/kg at 9 am (4) Hx of CABG: Plan: pt not on plavix or asa due to low platelets(thrombocytopenia) and bruising, continue htn treatment and statin for secondary risk prevention (5) CLL (chronic lymphocytic leukemia): Plan: Pt has chronic thrombocytopenia, continue Imbruvica, see [facility] oncology (6) Thyroid carcinoma: Plan: pt has subtotal thyroidectomy remains on synthroid Plan: Lovenox for dvt prevention, with eye on platelets as covid plus cancer increase risk of VTE History of Present Illness Primary Care Provider: Yuki Elliott MD 76 [facility] of CLL currently on Imbruvica, vaccinated against Covid x4, presents with hypoxia, weakness and syncope, has coriza sx, plus nausea and diarrhea, did have syncope sitting in wheelchair in er, was not tachypneic but is hypoxic. Pt will be continued on Imbruvica as per recommendations of use in covid patients to reduce lung progression, currently CXR is not worrisome for pneumonia, was given Cefepime in ER but will not continue however due to abnormal left basilar lung exam will have patient on azithromycin at this point repeat chest x-ray on 03/13/2022 Allergies Allergy/AdvReac Type Severity Reaction Status Date / Time clopidogrel AdvReac Severe SEVERE Verified 11/29/21 19:11 SUBCUTANEOUS BLEEDING BOTH ARMS glimepiride [From Amaryl] AdvReac Severe Increased Verified 11/29/21 19:11 liver enzymes Sulfa (Sulfonamide AdvReac Severe Increased Verified 11/29/21 19:11 Antibiotics) liver enzymes sulfamethoxazole AdvReac Severe INCREASED Verified 11/29/21 19:11 [From Bactrim] LIVER ENZYMES trimethoprim [From Bactrim] AdvReac Severe INCREASED Verified 11/29/21 19:11 LIVER ENZYMES Opioids - Morphine Analogues AdvReac Intermediate severe Verified 11/29/21 19:11 constipation Home Medications Medication Instructions Recorded Confirmed Type levothyroxine 200 mcg tablet 200 mcg PO DAILYBB 07/30/18 11/29/21 History (Synthroid) metformin 850 mg tablet 850 mg PO BID 07/30/18 11/29/21 History zscdqdicmeii-mguebiqf-jooifg 1 tab PO QAM 07/30/18 11/29/21 History tablet (Multivitamin 50 Plus) simvastatin 40 mg tablet (Zocor) 40 mg PO HS 07/30/18 11/29/21 History tamsulosin 0.4 mg capsule (Flomax) 0.4 mg PO QAM 07/30/18 11/29/21 History ibrutinib 420 mg tablet (Imbruvica) 420 mg PO DAILY@1600 05/03/19 11/29/21 History insulin glargine 100 unit/mL (3 14 unit SUBCUT HS 05/03/19 11/29/21 History mL) subcutaneous pen (Basaglar KwikPen U-100 Insulin) insulin aspart U-100 100 unit/mL 0 unit SUBCUT USEASDIRECTD PRN 07/23/19 11/29/21 History subcutaneous solution (Novolog U-100 Insulin aspart) atenolol 50 mg tablet (Tenormin) 50 mg PO QAM tab 07/31/19 11/29/21 History prazosin 2 mg capsule (Minipress) 4 mg PO BID 01/02/21 11/29/21 History cephalexin 250 mg capsule 250 mg PO DIRECTED PRN 05/28/21 11/29/21 History eszopiclone 2 mg tablet (Lunesta) 2 mg PO HS PRN 11/29/21 11/29/21 History lisinopril 20 mg tablet 20 mg PO BID 11/29/21 11/29/21 History Past Med/Surg History Medical History BPH (benign prostatic hyperplasia) Callus Cancer SKIN CANCER REMOVAL Diabetes mellitus, type 2 Hearing deficit Hyperlipidemia Hypertension Hypothyroidism Kidney stones Leukemia CLL (CHEMO) Osteoarthritis Pulmonary nodule BEING MONITORED Type 2 diabetes mellitus with diabetic neuropathy Ulcer of right heel and midfoot Surgical History Fusion of spine LUMBAR H/O four vessel coronary artery bypass graft History of cardiac cath CHEST PAIN>13 YEARS AGO History of cholecystectomy History of cholecystectomy History of colonoscopy History of coronary artery bypass graft 4 VESSELS (13 YEARS AGO) History of cystoscopy KIDNEY STONE REMOVAL History of thyroidectomy, total BENIGN (MULTIPLE RADIATION TREATMENT FOR ACNE AT AGE 14) History of tonsillectomy History of tooth extraction Previous back surgery Family History Grandfather Family history of diabetes mellitus Social History Smoking Status: Former smoker Tobacco Type: Cigarettes Cigarettes Per Day: QUIT 1984; Second Hand Exposure: No; Hx Alcohol Use: Yes Alcohol type: beer and hard liquor Hx Substance Use: No Preferred Language: Swedish Communication Ability: Effective Visual Impairment: Limited Hearing Ability: Normal [employer]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: No Beliefs That Will Affect Care: None marital status: Current Living Situation: Spouse current occupational status: retired Feels Safe at Home: Yes Assistive Devices: Glasses Review of Systems Review of Systems: Mild distress and extreme fatigue did have a brief moment of loss of consciousness in the wheelchair in route to the ER no headache, no visual changes no speech or swallowing issues no chest pain, pressure or palpitations no shortness of breath, cough or wheezes no abdominal pain, has had nausea vomiting and diarrhea for the last 2 days no dysuria, hematuria or frequency no focal joint pain or swelling no back pain, CVA tenderness or radicular pain no bruising, bleeding or rashes no focal signs of weakness or numbness or altered sensation no complaints of anxiety or depression.. Physical Exam Physical Exam: The patient appeared well nourished and normally developed. Vital signs as documented. Head exam is normocephalic atraumatic Posterior oropharynx is erythematous without exudates or thrush Neck is without JVD, thyromegaly, or carotid bruits. Lungs are coarse rales are heard at the left base otherwise clear Cardiac exam, Rhythm is regular.. No murmurs, rubs or gallops. Abdominal exam reveals normal bowel sounds, soft non tender, no masses Extremities are nonedematous and both pedal pulses are present Neurologic exam is alert and oriented, no focal loss of strength or sensation Skin is without bruises or rashes Psychologically is without concerns for anxiety or depression.. Results & Data Results & Data ([facility]) Vital Signs (Past 12 Hours) Vital Signs Temp Pulse Resp BP Pulse Ox 03/12/22 10:15 57 L 19 142/70 H 100 03/12/22 10:00 58 L 23 139/70 100 03/12/22 09:45 138/76 95 03/12/22 09:30 133/67 03/12/22 09:15 58 L 20 122/50 L 94 03/12/22 08:34 98.8 F 80 16 96/60 L 90 Diagnostic Findings Chest X-Ray 03/12/22 08:54 XR chest 1V portable CLINICAL HISTORY: weakness. Evaluate cardiopulmonary status COMPARISON STUDY: 11/29/2021 TECHNIQUE: 1 view of the chest FINDINGS: Single frontal view of the chest demonstrates the heart to be enlarged status post previous cardiothoracic surgery. There is a decreased inspiratory effort with elevation of the hemidiaphragms and crowding of the bronchovascular markings at the lung bases and centrally. The lungs are clear of alveolar opacities. There is no evidence for pleural effusion. There is no evidence for vascular congestion. There is no acute osseous pathology. IMPRESSION: 1. There is a decreased inspiratory effort with otherwise no acute chest di sease. Electronically signed by: Blaine Magaña M.D. 03/12/2022 9:52 AM Code Status & VTE Plan VTE Prophylaxis Plan VTE Prophylaxis will be ordered: Yes PG Care Time/CCT Total # of Minutes Spent Total Time Spent with Patient: Total time spent is greater than 50% in coordination of care (as documented) at patient's floor/unit and/or counseling patient: Coding Level of Care Code 01416 Initial Inpt Care Lvl 3 Diagnoses CLL (chronic lymphocytic leukemia) C91.10 Hypertension I10 Diabetes E11.9 COVID U07.1 Hx of CABG Z95.1 Thyroid carcinoma C73
[2022-03-12 11:46] LABS: SARS CoV2 RNA(COVID-19) InHosp POSITIVE (Negative)
[2022-03-12] MEDS: AZITHROMYCIN 500 MG in DEXTROSE 5% 250 ML IV SCH (11:49)
--- NOTE | 2022-03-12 11:59 | XRay Report ---
XR chest 1V portable CLINICAL HISTORY: eval LLL progression. Cough and weakness COMPARISON STUDY: No previous studies for comparison. TECHNIQUE: 1 view of the chest FINDINGS: Single frontal view of the chest demonstrates the cardiomediastinal silhouette to be within normal li mits. There is a decreased inspiratory effort with elevation of the hemidiaphragms and crowding of th e bronchovascular markings at the lung bases and centrally. There has been interval development of le ft basilar atelectasis. The lungs are clear of alveolar opacities. There is no evidence for pleural e ffusion. There is no evidence for vascular congestion. There is no acute osseous pathology. IMPRESSION: 1. Compared to the earlier study from today, there is persistent decreased inspiratory effort with le ft basilar atelectasis now seen. ACT 112: Negative or not required by law. Electronically signed by: Blaine Magaña M.D. 03/12/2022 11:58 AM
[2022-03-12] MEDS ORDERED: GLUCOSE 40% GEL 15 GM TUBE PO PRN (14:42)
[2022-03-12] MEDS ORDERED: DEXTROSE 50% 50 ML SYRINGE IV PRN (14:42)
[2022-03-12] MEDS ORDERED: ACETAMINOPHEN 500 MG TAB PO PRN (14:42)
[2022-03-12] MEDS ORDERED: GLUCOSE 10 TABS/TUBE PO PRN (14:42)
[2022-03-12] MEDS ORDERED: CARBOHYDRATES FOR HYPOGLYCEMIA PO PRN (14:42)
[2022-03-12] MEDS ORDERED: ALUMINUM/MAGNESIUM SUSP 30 ML UDC PO PRN (14:42)
[2022-03-12] MEDS ORDERED: GLUCAGON FOR INJ 1 MG VIAL SQ PRN (14:42)
[2022-03-12] MEDS ORDERED: LACTATED RINGER'S 1,000 ML IV SCH (15:00)
[2022-03-12] MEDS ORDERED: REMDESIVIR 200 MG in SODIUM CHLORIDE 0.9% 210 ML IV ONE (15:00)
[2022-03-12] MEDS: ENOXAPARIN INJ 40 MG/0.4 ML SYR SQ SCH (15:44)
[2022-03-12] MEDS: INSULIN ASPART PER UNIT SC SCH ×4 (17:03→20:29)
[2022-03-12 18:57] LABS: Appearance Urine Clear (Clear); Bacteria Urine Automated Negative (Negative); Bilirubin Urine Negative (Negative); Blood Urine Trace (Negative); Color Urine Yellow; Epithelial Cell Urine Auto 0-5 /lpf (0-5); Glucose Urine UA 3+ (Negative); Ketones Urine Trace (Negative); Leukocyte Esterase Urine Negative (Negative); Nitrite Urine Negative (Negative); Protein Urine Negative (Negative); RBC Urine Automated 0-4 /hpf (0-4); Specific Gravity Urine 1.019 (1.000-1.030); Urobilinogen Urine Negative (Negative); WBC Urine Automated 0 /hpf (0-5)
[2022-03-12] MEDS: INSULIN GLARGINE SOLOSTAR 100 UNITS/ML 3 ML PEN SQ SCH ×2 (20:18→20:30)
[2022-03-12] MEDS: SIMVASTATIN 40 MG TAB PO SCH (20:24)
[2022-03-12] MEDS: PRAZOSIN HCL 1 MG CAP PO SCH (20:24)
[2022-03-13] MEDS ORDERED: COUGH DROP (SUGAR FREE) LOZ 24 LOZ/1 BOX BUCCAL PRN ×2 (03:25→03:27)
[2022-03-13] MEDS: LEVOTHYROXINE SODIUM 200 MCG TABLET PO SCH (05:27)
[2022-03-13 07:19] LABS: Albumin Globulin Ratio 1.8 (0.9-2); Albumin Level 3.5 gm/dl (3.4-5.0); BUN Creatinine Ratio 19.5 (10-20); Bilirubin,Total 1.3 mg/dl (0.2-1.0); C Reactive Protein 2.22 mg/dl (0-0.5); Calcium 7.9 mg/dl (8.5-10.1); Creatinine Clr Calc Pharmacy 62.9 ml/min; Est GFR (African American) 73.8 ml/min; Est GFR (Non-African American) 63.7 ml/min; Potassium 4.3 mmol/L (3.5-5.1); Total Protein 5.5 gm/dl (6.0-8.3)
--- NOTE | 2022-03-13 07:51 | XRay Report ---
XR chest 1V portable HISTORY: 76 years-old Male eval LLL follow-up study in a patient with left lung base opacities and w eakness COMPARISON: Chest radiograph 03/12/2022 TECHNIQUE: Portable AP view of the chest FINDINGS: The cardiac silhouette is enlarged. Prior median sternotomy with surgical clips suggestive of CABG. A few fractured sternotomy wires are redemonstrated. No pneumothorax, large pleural effusion or overt pulmonary edema. No airspace consolidation typical for pneumonia. There is improved aeration of the l kayden bases. Minimal linear atelectasis of the left midlung. Bones of the chest appear grossly intact. IMPRESSION: 1. Cardiomegaly without acute process. 2. Improved aeration of the lung bases. ACT 112: Negative or not required by law. The above report was generated using voice recognition software. It may contain grammatical, syntax o r spelling errors. Electronically signed by: Tyron Serrano M.D. 03/13/2022 7:49 AM
[2022-03-13 09:47] LABS: Estimated Average Glucose 123 mg/dl; Hemoglobin A1C 5.9 % (4.5-5.6)
[2022-03-13] MEDS: ATENOLOL 50 MG TABLET PO SCH (10:24)
[2022-03-13] MEDS: lisinopril 20 MG TAB PO SCH (10:24)
[2022-03-13] MEDS: CEROVITE ADV FORMULA TAB PO SCH (10:25)
[2022-03-13] MEDS: TAMSULOSIN HCL 0.4 MG CAP PO SCH (10:26)
[2022-03-13] MEDS: PRAZOSIN HCL 1 MG CAP PO SCH ×2 (10:28→20:25)
[2022-03-13] MEDS: AZITHROMYCIN 500 MG in DEXTROSE 5% 250 ML IV SCH (10:32)
[2022-03-13] MEDS: INSULIN ASPART PER UNIT SC SCH ×4 (10:46→20:19)
[2022-03-13] MEDS: REMDESIVIR 100 MG in SODIUM CHLORIDE 0.9% 230 ML IV SCH (12:29)
--- NOTE | 2022-03-13 13:25 | Electrocardiogram Report ---
Test Reason : Blood Pressure : / mmHG Vent. Rate : 065 BPM Atrial Rate : 065 BPM P-R Int : 156 ms QRS Dur : 100 ms QT Int : 422 ms P-R-T Axes : 013 010 -26 degrees QTc Int : 438 ms Normal sinus rhythm Poor R wave progression, consider anterior PR vs. lead placement vs. LVH Abnormal ECG When compared with ECG of 30-NOV-2021 06:19, Minimal criteria for Anterior infarct are now Present Nonspecific T wave abnormality no longer evident in Lateral leads Confirmed by Charlie Dominique ([id number]) on 03/13/2022 1:25:43 PM Referred By: REFERRED SELF Confirmed By:Charlie Dominique
[2022-03-13] MEDS: IBRUTINIB PO SCH (16:06)
[2022-03-13] MEDS: ENOXAPARIN INJ 40 MG/0.4 ML SYR SQ SCH (17:07)
[2022-03-13] MEDS: INSULIN GLARGINE SOLOSTAR 100 UNITS/ML 3 ML PEN SQ SCH (20:19)
[2022-03-13] MEDS: SIMVASTATIN 40 MG TAB PO SCH (20:26)
--- NOTE | 2022-03-13 21:10 | Hospitalist Progress Note ---
Date of Service March 13, 2022 Assessment & Plan (1) COVID: Plan: Pt has GI symptoms and breifly was hypoxic in er, does not have pneumonia on presentation is 2 days into symptom complex, with hypoxia does qualify for treatment, Remdesivir Decadron Continue Imbruvica as per recommendations Supplemental oxygen Given the abnormal auscultative exam of this patient's lungs he will be continued on azithromycin and repeat chest x-ray will be performed on 03/13 although this could be the beginnings of COVID-pneumonia and not bacterial infection. A CRP will also be followed. On 03/13 Patient is now on room air. Patient is feeling better. will continue antibiotics, remdesevir and decadron. will recheck CRP. Plan is to complete 5 days of remdesevir unless patient is showing significant improvement (2) Hypertension: Plan: Pt did have syncope on presentation and is with nausea and diarrhea, was given IVf in ER continue atenolol, tamsulosin, prazosin reduce lisinopril to 20 mg daily from BID (3) Diabetes: Plan: pt will be on basal bolus, but due to decadron if poorly controlled consider adding NPH at 0.4 U/kg at 9 am (4) Hx of CABG: Plan: pt not on plavix or asa due to low platelets(thrombocytopenia) and bruising, continue htn treatment and statin for secondary risk prevention (5) CLL (chronic lymphocytic leukemia): Plan: Pt has chronic thrombocytopenia, continue Imbruvica, [place] [facility] (6) Thyroid carcinoma: Plan: pt has subtotal thyroidectomy remains on synthroid Plan: Lovenox for dvt prevention, with eye on platelets as covid plus cancer increase risk of VTE Admission and Anticipated Discharge Date Admission Date: March 12, 2022 Subjective 76 yo male reports feeling well. He has no new complaints. Review of Systems Review of Systems: All systems reviewed & are unremarkable except as noted in HPI & below Physical Exam Physical Exam: The patient appeared well nourished and normally developed. Vital signs as documented. Head exam is normocephalic atraumatic Posterior oropharynx is erythematous without exudates or thrush Neck is without JVD, thyromegaly, or carotid bruits. Lungs are coarse rales are heard at the left base otherwise clear Cardiac exam, Rhythm is regular.. No murmurs, rubs or gallops. Abdominal exam reveals normal bowel sounds, soft non tender, no masses Extremities are nonedematous and both pedal pulses are present Neurologic exam is alert and oriented, no focal loss of strength or sensation Skin is without bruises or rashes Psychologically is without concerns for anxiety or depression.. Results & Data Results & Data ([facility]) Vital Signs (Past 12 Hours) Vital Signs Temp Pulse Pulse Resp BP Pulse Ox 03/13/22 20:32 36.6 C 62 18 163/78 H 94 03/13/22 15:30 70 03/13/22 11:31 36.6 C 65 18 122/60 90 03/13/22 10:22 59 L 94 PG Care Time/CCT Total # of Minutes Spent Total Time Spent with Patient: Total time spent is greater than 50% in coordination of care (as documented) at patient's floor/unit and/or counseling patient: Coding Level of Care Code 17616 Subseq Hosp Care Lvl 2 Diagnoses COVID U07.1 Hypertension I10 Diabetes E11.9 Hx of CABG Z95.1 CLL (chronic lymphocytic leukemia) C91.10 Thyroid carcinoma C73
[2022-03-14] MEDS: LEVOTHYROXINE SODIUM 200 MCG TABLET PO SCH (05:37)
[2022-03-14 06:08] LABS: Hematocrit (blood only) 38.2 % (42-52); Mean Platelet Volume 11.9 fL (7.4-10.4); Platelet Count 76 K/uL (130-400); RDW Coefficient of Variation 13.7 % (11.5-14.5); RDW Standard Deviation 48.8 fL (36.4-46.3); Red Blood Count 3.94 M/uL (4.7-6.1); White Blood Count 4.61 K/uL (4.8-10.8)
[2022-03-14 06:31] LABS: Albumin Globulin Ratio 1.8 (0.9-2); Albumin Level 3.5 gm/dl (3.4-5.0); BUN Creatinine Ratio 20.8 (10-20); Bilirubin,Total 1.1 mg/dl (0.2-1.0); C Reactive Protein 1.02 mg/dl (0-0.5); Calcium 7.8 mg/dl (8.5-10.1); Creatinine Clr Calc Pharmacy 59.3 ml/min; Est GFR (African American) 68.6 ml/min; Est GFR (Non-African American) 59.2 ml/min; Globulin 1.9 gm/dl (2.5-4.0); Potassium 4.2 mmol/L (3.5-5.1); Total Protein 5.4 gm/dl (6.0-8.3)
[2022-03-14] MEDS: lisinopril 20 MG TAB PO SCH (08:25)
[2022-03-14] MEDS: TAMSULOSIN HCL 0.4 MG CAP PO SCH (08:25)
[2022-03-14] MEDS: ATENOLOL 50 MG TABLET PO SCH (08:25)
[2022-03-14] MEDS: CEROVITE ADV FORMULA TAB PO SCH (08:25)
[2022-03-14] MEDS: PRAZOSIN HCL 1 MG CAP PO SCH (08:26)
[2022-03-14] MEDS: INSULIN ASPART PER UNIT SC SCH ×2 (09:00→13:31)
[2022-03-14] MEDS ORDERED: AZITHROMYCIN 250 MG TAB PO ONE (12:41)
[2022-03-14] MEDS: REMDESIVIR 100 MG in SODIUM CHLORIDE 0.9% 230 ML IV SCH (12:41)
[2022-03-14] MEDS: AZITHROMYCIN 500 MG in DEXTROSE 5% 250 ML IV SCH (12:48)
[2022-03-14] MEDS: ENOXAPARIN INJ 40 MG/0.4 ML SYR SQ SCH (16:24)
[2022-03-14] MEDS: IBRUTINIB PO SCH (16:24)
--- NOTE | 2022-03-15 08:15 | Discharge Summary ---
Date of Service March 15, 2022 Admission HPI Per Admitting Provider 76 M wiht history of CLL currently on Imbruvica, vaccinated against Covid x4, presents with hypoxia, weakness and syncope, has coriza sx, plus nausea and diarrhea, did have syncope sitting in wheelchair in er, was not tachypneic but is hypoxic. Pt will be continued on Imbruvica as per recommendations of use in covid patients to reduce lung progression, currently CXR is not worrisome for pneumonia, was given Cefepime in ER but will not continue however due to abnormal left basilar lung exam will have patient on azithromycin at this point repeat chest x-ray on 03/13/2022 Discharge Exam The patient appeared well nourished and normally developed. Vital signs as documented. Head exam is normocephalic atraumatic Posterior oropharynx is erythematous without exudates or thrush Neck is without JVD, thyromegaly, or carotid bruits. Lungs are coarse rales are heard at the left base otherwise clear Cardiac exam, Rhythm is regular.. No murmurs, rubs or gallops. Abdominal exam reveals normal bowel sounds, soft non tender, no masses Extremities are nonedematous and both pedal pulses are present Neurologic exam is alert and oriented, no focal loss of strength or sensation Skin is without bruises or rashes Psychologically is without concerns for anxiety or depression.. Discharge Data Allergies Allergy/AdvReac Type Severity Reaction Status Date / Time clopidogrel AdvReac Severe SEVERE Verified 03/12/22 15:01 SUBCUTANEOUS BLEEDING BOTH ARMS glimepiride [From Amaryl] AdvReac Severe Increased Verified 03/12/22 15:01 liver enzymes Sulfa (Sulfonamide AdvReac Severe Increased Verified 03/12/22 15:01 Antibiotics) liver enzymes sulfamethoxazole AdvReac Severe INCREASED Verified 03/12/22 15:01 [From Bactrim] LIVER ENZYMES trimethoprim [From Bactrim] AdvReac Severe INCREASED Verified 03/12/22 15:01 LIVER ENZYMES Opioids - Morphine Analogues AdvReac Intermediate severe Verified 03/12/22 15:01 constipation Consultations 03/12/22 10:27 ED Decision to Admit Stat Hospital Course (1) COVID: Pt has GI symptoms and breifly was hypoxic in er, does not have pneumonia on presentation is 2 days into symptom complex, with hypoxia does qualify for treatment, Remdesivir Decadron Continue Imbruvica as per recommendations Supplemental oxygen Given the abnormal auscultative exam of this patient's lungs he will be continued on azithromycin and repeat chest x-ray will be performed on 03/13 although this could be the beginnings of COVID-pneumonia and not bacterial infection. A CRP will also be followed. On 03/13 Patient is now on room air. Patient is feeling better. will continue antibiotics, remdesevir and decadron. will recheck CRP. Plan is to complete 5 days of remdesevir unless patient is showing significant improvement (2) Hypertension: Pt did have syncope on presentation and is with nausea and diarrhea, was given IVf in ER continue atenolol, tamsulosin, prazosin reduce lisinopril to 20 mg daily from BID (3) Diabetes: pt will be on basal bolus, but due to decadron if poorly controlled consider adding NPH at 0.4 U/kg at 9 am (4) Hx of CABG: pt not on plavix or asa due to low platelets(thrombocytopenia) and bruising, continue htn treatment and statin for secondary risk prevention (5) CLL (chronic lymphocytic leukemia): Pt has chronic thrombocytopenia, continue Imbruvica, see [facility] [place] (6) Thyroid carcinoma: pt has subtotal thyroidectomy remains on synthroid Lovenox for dvt prevention, with eye on platelets as covid plus cancer increase risk of VTE Discharge Plan Discharge Items Patient Disposition: Home - Self-Care Reason For Visit: ACUTE HYPOXIA RESPIRATORY FAILURE Discharge Diagnosis: acute hypoxia respiratory Condition on Discharge: Fair Activity: Resume your previous activity Non-emergency contact: Primary Care Provider Call non-emergency contact if: you have any medication questions Follow-up/Referrals: Yuki Elliott MD [Primary Care Provider] - 03/17/22 12:50 pm (TELEPHONE VISIT WITH DR SUNG) Diet: Carb Consistent or DM2 Addtl Attending Provider Instructions: You were seen for COVID 19. Thankfully you improved with medications with remdesevir and antibitoics I will recommend to continue with your antibiotic for 3 more days. Your azithromycin you can start tomorrow. You will be on prednisone for 7 days twice a day. Please start tonight. Pending Studies at Discharge: No Stand-Alone Forms: My [facility], Smoking Cessation Medications and DC Order Prescriptions: New prednisone 20 mg tablet 20 mg PO BID 7 Days Qty: 14 RF: 0 azithromycin 250 mg tablet 250 mg PO DAILY Qty: 3 RF: 0 Continued metformin 850 mg Tablet 850 mg PO BID RF: 0 simvastatin [Zocor] 40 mg Tablet 40 mg PO HS RF: 0 tamsulosin [Flomax] 0.4 mg Capsule 0.4 mg PO QAM RF: 0 levothyroxine [Synthroid] 200 mcg Tablet 200 mcg PO DAILYBB RF: 0 Multivitamin 50 Plus Tablet 1 tab PO QAM RF: 0 insulin glargine [Basaglar KwikPen U-100 Insulin] 100 unit/mL (3 mL) insulin pen 14 unit subcut HS RF: 0 Imbruvica 420 mg tablet 420 mg PO DAILY@1600 RF: 0 insulin aspart U-100 [Novolog U-100 Insulin aspart] 100 unit/mL Solution 0 unit SUBCUT USEASDIRECTD PRN (Reason: Unknown) RF: 0 atenolol [Tenormin] 50 mg tablet 50 mg PO QAM RF: 0 lisinopril 20 mg tablet 20 mg PO BID RF: 0 eszopiclone [Lunesta] 2 mg Tablet 2 mg PO HS PRN (Reason: Sleep) RF: 0 nitroglycerin 0.4 mg tablet, sublingual 0.4 mg sublingual DIRECTED PRN (Reason: Chest Pain) RF: 0 prazosin [Minipress] 2 mg capsule 4 mg PO BID RF: 0 Discharge Orders: Discharge Order (Routine); Ordered 03/14/22 Ordered By: Fidencio Pimentel Admission Data Admit Date/Time: 03/12/22 10:29 Attending Provider: Fidencio Pimentel Admit Provider: Rome Wood Primary Care Provider: Yuki Elliott Other Providers: Rome Wood Other Interventions: Discharge Summary Assessment (RN) Last Done: 03/14/22 14:29 Coding Diagnoses COVID U07.1 Hypertension I10 Diabetes E11.9 Hx of CABG Z95.1 CLL (chronic lymphocytic leukemia) C91.10 Thyroid carcinoma C73
== END 2022-03-14 17:40 | disposition home or self-care (01) | DRG 178 ==
LOC: ED 08:26 → SUATTDRO 10:29 → EDINP 10:29 → 2N 16:30 → 3E 03-13 20:00